=== PATIENT | male | born 1995 | race Caucasian/White ===

== ENCOUNTER 2024-02-11 13:43 | Inpatient (IN) | payer MEDICAID, OTHER, SELFPAY ==
[2024-02-11 13:48] VITALS: BP 125/60; PULSE 64; RESP 18; TEMP 36; O2SAT 98; BMI 23.1
--- NOTE | 2024-02-11 13:51 | ED.PSYCH ---
HPI - Psych General Chief Complaint: Psychiatric Symptoms Stated Complaint: SI Time Seen by Provider: 02/11/24 14:06 Source: patient Mode of arrival: ambulatory Limitations: no limitations History of Present Illness HPI Narrative: 28 yo patient with PMH of schizophrenia here with reports of SI due to life stressors and also notes prior inpatient treatments not happy with current care. No medical complaints. Is compliant with medications state people are helping her but she just cannot seem to get herself to do it. MD complaint: suicidal ideation and feels depressed Onset (ago): week(s) Duration: getting worse History of same: Yes Relieving factors: none Exacerbating factors: other Context: significant life stressor Associated psychiatric symptoms: depression and suicidal ideation Associated symptoms: denies other symptoms Treatments prior to arrival: none If self harm: admits thoughts of self harm Related Data Allergies Allergy/AdvReac Type Severity Reaction Status Date / Time No Known Allergies Allergy Verified 02/11/24 13:52 Review of Systems Review of Systems: Constitutional : No Fever, No Chills ENT/Mouth : No Ear Pain, No Nasal Congestion, No sore throat Eyes: No Eye Pain, No Swelling, No Redness Cardiovascular : No Chest Pain, No SOB Respiratory : No Cough, No Sputum, No Dyspnea Gastrointestinal : No Nausea, No Vomiting, No Diarrhea, No Hematochezia, No Melena Genitourinary : No Dysuria, No Urinary Frequency, No Hematuria Musculoskeletal : No Myalgias Skin : No Skin Lesions, No rash Neuro : No Weakness, No Numbness, No Paresthesias, No Dizziness, No Headache Psych : positive Anxiety, positive Depression, positive SI no HI All other systems reviewed and are negative [facility] Past Medical History Attestation statement: The following information was validated with the patient. Source: old records reviewed Medical History History of hormone therapy Schizophrenia Social History Social History Patient Tobacco Use Status: Current everyday Tobacco user Advance Directives: No Advance Directives Information Provided: No Do you have a plan to hurt others: No Plan Physical Exam Vital Signs: Vital Signs: Last Vital Signs Temp 96.8 F 02/11/24 13:48 Pulse 64 02/11/24 13:48 Resp 18 02/11/24 13:48 BP 125/60 02/11/24 13:48 Pulse Ox 98 02/11/24 13:48 O2 Del Method Room Air 02/11/24 13:48 BMI result Body Mass Index 23.1 Appearance: Alert. Oriented X3. No acute distress. Eyes: Pupils equal, round and reactive to light. ENT: Pharynx normal. Neck: Normal inspection. Neck supple. CVS: Normal heart rate and rhythm. Pulses normal. Respiratory: No respiratory distress. Breath sounds normal. Abdomen: Soft and nontender. Skin: Skin warm and dry. Normal skin color. Normal skin turgor. Extremities: No lower extremity edema. No calf ttp Neuro: Oriented X 3. No motor deficit. No sensory deficit. Cn2-12 intact Course Course Course Narrative: This is an RME performed by Lito Gorman CNP: Additional HPI, ROS, PE not included below will be deferred to primary provider. Patient is a 28-year-old transgender male to female patient with reported past medical history of schizophrenia, dissociative seizures, presenting for SI with a plan, though did not disclose plan, reports increased life stressors, brother had recently from Suicide. Previously has received care at [facility] and has been inpatient at [facility], wanting a second opinion to get stabillized Plan: moved to 22H in main ED Medical Decision Making Medical Decision Making [facility] Narrative: 28 yo patient with schizophrenia here with c/o SI and depression at this time denies medical complaints will obtain labs, CARE team consult Differential Diagnosis Differential Diagnoses: The differential diagnosis associated with the presentation includes depression, SI Admission/Observation Consideration of admission/observation: Escalation of care including admission/observation considered observation started at 220pm pending CARE team evaluation Consult Healthcare Provider Management of the patient was discussed with: Behavioral Health Provider Lab Data [facility] Lab Attestation statement: I reviewed the patient's lab results. 02/11/24 15:02 02/11/24 15:02 Labs: Lab Results 02/11/24 Range/Units 15:02 WBC 7.1 (4.8-10.8) X10*3/uL RBC 3.77 L (4.60-5.80) X10*6/uL Hgb 11.9 L (14.0-18.0) g/dl Hct 33.6 L (42.0-52.0) % MCV 89.1 (80.0-98.0) fL MCH 31.6 (27.0-33.0) pg MCHC 35.4 (31.0-36.0) g/dl RDW 11.6 (11.0-16.0) % Plt Count 170 (160-400) X10*3/uL MPV 9.5 (9.4-12.4) fL Immature Gran % (Auto) 0.3 (0.0-0.4) % Neut % (Auto) 68.5 (45-73) % Lymph % (Auto) 25.4 (20-40) % [place] % (Auto) 5.0 (2-11) % Eos % (Auto) 0.4 (0-4) % Baso % (Auto) 0.4 (0-2) % Lymph # (Auto) 1.8 (1.2-4.9) X10*3/uL [place] # (Auto) 0.4 (0.1-1.2) X10*3/uL Eos # (Auto) 0.0 (0.0-0.4) X10*3/uL Baso # (Auto) 0.0 (0.0-0.2) X10*3/uL Abs Immat Gran (auto) 0.02 (0.00-0.03) X10*3/uL Absolute Neuts (auto) 4.9 (2.0-8.3) x10*3/uL Absolute Nucleated RBC 0.000 (0.0-0.012) X10*3/uL Nucleated RBC % (auto) 0.0 (0.0-0.2) /100WBC Sodium 135 (135-145) mmol/L Potassium 4.0 (3.3-5.1) mmol/L Chloride 103 (96-108) mmol/L Carbon Dioxide 23 (22-29) mmol/L Anion Gap 13 (12-20) BUN 14 (9-16) mg/dL Creatinine 0.78 (0.5-1.4) mg/dL Estim Creat Clear Calc 153.7 Estimated GFR > 60 Random Glucose 112 (60-115) mg/dL Calcium 9.0 (8.4-10.2) mg/dL Total Bilirubin 0.3 (0.0-1.0) mg/dL AST 19 (5-37) U/L ALT 13 (0-40) U/L Alkaline Phosphatase 39 (39-117) U/L Total Protein 5.9 L (6.5-8.0) g/dL Albumin 3.7 (3.5-5.0) g/dL Salicylates < 5.0 L (15-30) mg/dL Acetaminophen < 3 (<30) mcg/mL Ethyl Alcohol < 10 mg/dL Influenza Type A (PCR) NEGATIVE (Negative) Influenza Type B (PCR) NEGATIVE (Negative) RSV RNA Qual (PCR) NEGATIVE (Negative) SARS-CoV-2 RNA (RT-PCR) NEGATIVE (Negative) Social Determinants Patient?s care significantly limited by Social Determinants of Health including: Inadequate housing and Problems related to primary support group Discharge Plan Discharge Clinical Impression: Chronic schizophrenia Patient Disposition: Still a Patient Interventions: [place]-Suicide Risk Severity Scale Last Done: 02/11/24 15:24 Print Language: Malagasy
[2024-02-11 15:06] LABS: MANUAL DIFF FLAG NO
[2024-02-11 15:13] LABS: Basophils Percent Auto 0.4 % (0-2); Eosinophils Percent Auto 0.4 % (0-4); Hematocrit 33.6 % (42.0-52.0); Hemoglobin 11.9 g/dl (14.0-18.0); Imm Gran Abs Auto 0.02 X10*3/uL (0.00-0.03); Imm Gran Pct Auto 0.3 % (0.0-0.4); Lymphocytes Absolute Auto 1.8 X10*3/uL (1.2-4.9); Lymphocytes Percent Auto 25.4 % (20-40); Mean Corpuscular HGB Conc 35.4 g/dl (31.0-36.0); Mean Corpuscular Hemoglobin 31.6 pg (27.0-33.0); Mean Corpuscular Volume 89.1 fL (80.0-98.0); Mean Platelet Volume 9.5 fL (9.4-12.4); Monocytes Absolute Auto 0.4 X10*3/uL (0.1-1.2); Neutrophils Absolute Auto 4.9 x10*3/uL (2.0-8.3); Neutrophils Percent Auto 68.5 % (45-73); Platelet Count 170 X10*3/uL (160-400); Red Blood Count 3.77 X10*6/uL (4.60-5.80); Red Cell Distribution Width 11.6 % (11.0-16.0); White Blood Count 7.1 X10*3/uL (4.8-10.8)
[2024-02-11 15:27] LABS: Acetaminophen LAB < 3 mcg/mL (<30); Salicylate < 5.0 mg/dL (15-30)
[2024-02-11 15:28] LABS: Alanine Aminotransferase 13 U/L (0-40); Albumin Level 3.7 g/dL (3.5-5.0); Alkaline Phosphatase 39 U/L (39-117); Anion Gap 13 (12-20); Aspartate Amino Transferase 19 U/L (5-37); Bilirubin Total 0.3 mg/dL (0.0-1.0); Blood Urea Nitrogen 14 mg/dL (9-16); Carbon Dioxide 23 mmol/L (22-29); Chloride 103 mmol/L (96-108); Creatinine Clr Calc Pharmacy 153.7; Estimated Glomerular Filt Rate > 60; Ethanol < 10 mg/dL; Glucose Random 112 mg/dL (60-115); Sodium 135 mmol/L (135-145); Total Protein 5.9 g/dL (6.5-8.0)
[2024-02-11 15:43] LABS: Influenza A PCR NEGATIVE (Negative); Influenza B PCR NEGATIVE (Negative); Resp Syncy Virus RNA Qual PCR NEGATIVE (Negative); SARS COV2 PCR INHOUSE NEGATIVE (Negative)
[2024-02-11 15:50] LABS: Appearance Urine Clear; Color Urine Yellow; Glucose Urine UA Negative (Negative); Leukocyte Esterase Urine Negative (Negative); Nitrite Urine Negative (Negative); Urine Blood Negative (Negative); Urine Ketones Negative (Negative); Urine Protein Negative (Neg-Trace)
[2024-02-11 16:02] LABS: Amphetamine Screen Urine Not Detected (Not Detect); Barbiturates, Urine Not Detected (Not Detect); Benzodiazepines Screen Urine Not Detected (Not Detect); Buprenorphine Scr Positive (Not Detect); Cannabinoid Screen Urine Not Detected (Not Detect); Cocaine Screen Urine Not Detected (Not Detect); Fentanyl, urine Not Detected (Not Detect); Methadone Screen, Urine Not Detected (Not Detect); Opiate Screen Urine Not Detected (Not Detect); Oxycodone Screen Urine Not Detected (Not Detect); Phencyclidine Screen Urine Not Detected (Not Detect)
[2024-02-11] MEDS: Nicotine Polacrilex 2 MG GUM BUCCAL ×2 (17:14→23:13)
--- NOTE | 2024-02-11 18:28 | PC.NURSE ---
Pt has multiple medications in POD belongings, and medications also in pharmacy
--- NOTE | 2024-02-11 18:49 | PHA.MEDREC ---
Pharmacy Consult ? Medication Reconciliation Pharmacy has completed the medication reconciliation. Spoke to pt and confirmed via rx bottles.
--- NOTE | 2024-02-11 18:52 | PC.NURSE ---
Pt laying in stretcher calm/cooperative, reading book. Awaiting care team report.
--- NOTE | 2024-02-11 19:41 | PC.NURSE ---
Assumed care of the pt at 1900. Pt is asleep in bed with sitter at the bedside at this time.
[2024-02-11] MEDS: cloNIDine HCL 0.2 MG TABLET PO (23:12)
[2024-02-11] MEDS: hydrOXYzine HCL 50 MG TABLET PO (23:13)
[2024-02-11] MEDS: Gabapentin 600 MG TABLET PO (23:13)
[2024-02-12 00:40] VITALS: BP 106/47; PULSE 57; RESP 16; TEMP 36.9; O2SAT 98
--- NOTE | 2024-02-12 07:22 | PC.NURSE ---
Assumed care of patient at 0645, patient appears to be sleeping at this time, respirations even and unlabored, no apparent distress noted. Patient will remain S12 inpatient bedsearch
[2024-02-12] MEDS: Gabapentin 600 MG TABLET PO ×2 (08:46→18:15)
[2024-02-12] MEDS: Buprenorphine/Naloxone 8/2 mg FILM 1 FILM BUCCAL (08:46)
[2024-02-12] MEDS: Disulfiram 250 MG TABLET PO (08:46)
[2024-02-12] MEDS: Multivitamin TABLET 1 TAB PO (08:46)
[2024-02-12] MEDS: Thiamine HCL 100 MG TABLET PO (08:46)
[2024-02-12] MEDS: Cariprazine HCl 1.5 MG CAPSULE PO (08:46)
[2024-02-12] MEDS: Folic Acid 1 MG TABLET PO (08:46)
[2024-02-12 09:15] VITALS: BP 109/63; PULSE 54; RESP 12; TEMP 36.7; O2SAT 98
[2024-02-12] MEDS: Nicotine Polacrilex 2 MG GUM BUCCAL ×2 (10:03→13:24)
[2024-02-12] MEDS: Nicotine 21 MG PATCH.TD24 TRANSDERMA (14:39)
[2024-02-12] MEDS: hydrOXYzine HCL 50 MG TABLET PO (18:15)
--- NOTE | 2024-02-12 19:00 | PC.NURSE ---
patient appears to remain at rest respirations are even and unlabored patient appears in no distress.
[2024-02-12 19:44] VITALS: BP 123/68; PULSE 88; RESP 16; TEMP 36.9; O2SAT 98
[2024-02-12] MEDS: traZODone HCL 100 MG TABLET PO (19:55)
[2024-02-12] MEDS: cloNIDine HCL 0.2 MG TABLET PO (19:55)
[2024-02-12] MEDS: Melatonin 3 MG TABLET PO (19:55)
--- NOTE | 2024-02-13 | ECG_ITS ---
Test Reason : RULE OUT QTC PROLONGATION-ATYPICAL USE Blood Pressure : / mmHG Vent. Rate : 053 BPM Atrial Rate : 053 BPM P-R Int : 148 ms QRS Dur : 100 ms QT Int : 442 ms P-R-T Axes : -07 -09 006 degrees QTc Int : 414 ms Sinus bradycardia Minimal voltage criteria for LVH, may be normal variant ( R in aVL ) Borderline ECG No previous ECGs available Referred By: Carlene Byers Electronically Signed By:Cuauhtemoc Leon
--- NOTE | 2024-02-13 02:48 | PC.NURSE ---
client awoke and came out to get a sandwich and milk
--- NOTE | 2024-02-13 07:13 | PC.NURSE ---
Assumed care of patient at 0645. Patient is observed sleeping in there bed at this time. No signs of distress, breathing is even and unlabored at this time. Will continue plan of care.
[2024-02-13] MEDS: Thiamine HCL 100 MG TABLET PO (09:04)
[2024-02-13] MEDS: Cariprazine HCl 1.5 MG CAPSULE PO (09:04)
[2024-02-13] MEDS: Multivitamin TABLET 1 TAB PO (09:04)
[2024-02-13] MEDS: Folic Acid 1 MG TABLET PO (09:04)
[2024-02-13] MEDS: Buprenorphine/Naloxone 8/2 mg FILM 1 FILM BUCCAL (09:04)
[2024-02-13] MEDS: Gabapentin 600 MG TABLET PO ×2 (09:04→17:29)
[2024-02-13] MEDS: Disulfiram 250 MG TABLET PO (10:18)
[2024-02-13] MEDS: Nicotine Polacrilex 2 MG GUM BUCCAL ×3 (10:39→15:56)
[2024-02-13 11:16] VITALS: BP 125/58; PULSE 59; RESP 15; TEMP 36.8; O2SAT 100
[2024-02-13 14:34] VITALS: BP 126/59; PULSE 68; RESP 19; TEMP 36.7; O2SAT 98
[2024-02-13 15:28] VITALS: BMI 23.8
[2024-02-13] MEDS: Nicotine 21 MG PATCH.TD24 TRANSDERMA (16:02)
--- NOTE | 2024-02-13 17:45 | PC.ADMIT ---
Vadim is 28 y/o transgender male to female who uses pronouns she/her. She was admitted to at 1:45 pm from [facility] POD on a CV for SI with plan to hang herself. Pt is not known to CARE team at [facility] as they usually seek treatment at [facility] in [place]. Pt carries diagnosis of Schizophrenia, MDD, and also reports having Dissociative disorder with seizure involvement that range from tremors to full on convulsions . She states she has had brain scans and all is normal. I'm not sure if the seizures are related to my trauma history or disassociation disorder. She reports the last seizure was in mid January. When she is in this state she reports having nystagmus prior to seizure activity but I don't lose consciousness . She also reports having several [facility] stays over past 2 years with most recent being at [facility]. She reports she has been clean from substances since September and is on Suboxone and Antibuse for past alcohol and substance use. Pt A/O x4, pleasant and cooperative with admission process. Skin and contraband search completed by 2 female staffing mgr, skin intact and no unsafe items found. Pt affect is depressed and blunted but pleasant. Presently denies SI/HI/AVH and is able to contract verbally for safety with TW. Pt is a good historian and wants to make sure that all of her history is conveyed and not just bits and pieces. She is presently homeless and was planning on going to live with/visit her grandmother but felt like she could not function or mobilize and decided to call an ambulance since she did not feel safe. Pt reports her brother completed suicide 2 months ago and this has contributed to her worsening depression. She reports she is not on any antidepressants and hopes to receive the treatment she needs while here. Currently on q15 min checks and feels safe on unit.
[2024-02-13] MEDS: Nicotine Polacrilex 2 MG GUM 4 MG BUCCAL ×2 (18:03→20:56)
[2024-02-13 20:00] VITALS: BP 136/67; PULSE 85; RESP 18; TEMP 36.6; O2SAT 100
[2024-02-13] MEDS: cloNIDine HCL 0.2 MG TABLET PO (20:49)
[2024-02-13] MEDS: Melatonin 3 MG TABLET PO (20:50)
[2024-02-13] MEDS: hydrOXYzine HCL 50 MG TABLET PO (20:51)
[2024-02-14] MEDS: Nicotine Polacrilex 2 MG GUM 4 MG BUCCAL ×7 (06:03→21:08)
[2024-02-14 08:00] VITALS: BP 122/60; PULSE 74; RESP 18; TEMP 36; O2SAT 100
[2024-02-14] MEDS: Folic Acid 1 MG TABLET PO (08:12)
[2024-02-14] MEDS: Nicotine 21 MG PATCH.TD24 TRANSDERMA (08:12)
[2024-02-14] MEDS: Gabapentin 600 MG TABLET PO ×2 (08:12→16:02)
[2024-02-14] MEDS: Disulfiram 250 MG TABLET PO (08:12)
[2024-02-14] MEDS: Cariprazine HCl 1.5 MG CAPSULE PO (08:12)
[2024-02-14] MEDS: Benztropine Mesylate 1 MG TABLET PO (08:12)
[2024-02-14] MEDS: Multivitamin TABLET 1 TAB PO (08:12)
[2024-02-14] MEDS: Thiamine HCL 100 MG TABLET PO (08:12)
[2024-02-14] MEDS: Buprenorphine/Naloxone 8/2 mg FILM 1 FILM BUCCAL (08:36)
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
[2024-02-14 11:26] LABS: Estimated Average Glucose 103 mg/dL; Hemoglobin A1c % 5.2 % (<6.0)
[2024-02-14 11:53] LABS: Cholesterol 173 mg/dL (<200); HDL Cholesterol 68 mg/dL (>40); LDL Cholesterol Calculated 84 mg/dL (<100); Magnesium 1.8 mg/dL (1.6-2.6); Triglycerides 106 mg/dL (<150)
[2024-02-14 12:13] LABS: Free T4 (Free Thyroxine) 0.91 ng/dL (0.71-1.85); Thyroid Stimulating Hormone 0.82 uIU/mL (0.32-4.0)
[2024-02-14 12:18] LABS: Folate 18.5 ng/mL (> or = 4.0); Vitamin B12 951 pg/mL (200-900)
[2024-02-14 20:00] VITALS: BP 136/65; PULSE 105; RESP 17; TEMP 36.3; O2SAT 100
[2024-02-14 20:05] VITALS: BP 136/65
[2024-02-14] MEDS: cloNIDine HCL 0.2 MG TABLET PO (20:05)
[2024-02-14] MEDS: Melatonin 3 MG TABLET PO (20:07)
[2024-02-14] MEDS: hydrOXYzine HCL 50 MG TABLET PO (20:39)
[2024-02-15 07:00] VITALS: BMI 23.8
[2024-02-15] MEDS: Nicotine Polacrilex 2 MG GUM 4 MG BUCCAL ×8 (07:12→22:09)
[2024-02-15] MEDS: Nicotine 21 MG PATCH.TD24 TRANSDERMA (07:14)
[2024-02-15 08:00] VITALS: BP 120/60; PULSE 52; RESP 18; TEMP 36.4; O2SAT 100
[2024-02-15] MEDS: Gabapentin 600 MG TABLET PO ×2 (08:15→18:10)
[2024-02-15] MEDS: Disulfiram 250 MG TABLET PO (08:15)
[2024-02-15] MEDS: Multivitamin TABLET 1 TAB PO (08:15)
[2024-02-15] MEDS: buPROPion HCl XL 150 MG TAB.ER.24H PO (08:15)
[2024-02-15] MEDS: Folic Acid 1 MG TABLET PO (08:15)
[2024-02-15] MEDS: Thiamine HCL 100 MG TABLET PO (08:16)
[2024-02-15] MEDS: Buprenorphine/Naloxone 8/2 mg FILM 1 FILM BUCCAL (08:16)
[2024-02-15] MEDS: Benztropine Mesylate 1 MG TABLET PO (08:16)
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
[2024-02-15] MEDS: Cariprazine HCl 1.5 MG CAPSULE PO (09:17)
[2024-02-15] MEDS: Milk of Magnesia 30 ML ORAL.SUSP PO (18:32)
[2024-02-15 20:00] VITALS: BP 139/70; PULSE 68; RESP 16; TEMP 36.6; O2SAT 100
[2024-02-15] MEDS: cloNIDine HCL 0.2 MG TABLET PO (20:05)
[2024-02-15] MEDS: Melatonin 3 MG TABLET PO (22:08)
[2024-02-15] MEDS: hydrOXYzine HCL 50 MG TABLET PO (22:08)
[2024-02-16] MEDS: Nicotine Polacrilex 2 MG GUM 4 MG BUCCAL ×6 (05:30→21:08)
[2024-02-16 08:00] VITALS: BP 131/62; PULSE 75; RESP 18; TEMP 36.7; O2SAT 99
[2024-02-16] MEDS: Nicotine 21 MG PATCH.TD24 TRANSDERMA (08:36)
[2024-02-16] MEDS: Folic Acid 1 MG TABLET PO (08:37)
[2024-02-16] MEDS: Thiamine HCL 100 MG TABLET PO (08:37)
[2024-02-16] MEDS: Gabapentin 600 MG TABLET PO ×2 (08:37→15:53)
[2024-02-16] MEDS: Disulfiram 250 MG TABLET PO (08:37)
[2024-02-16] MEDS: Multivitamin TABLET 1 TAB PO (08:37)
[2024-02-16] MEDS: Cariprazine HCl 1.5 MG CAPSULE PO (08:37)
[2024-02-16] MEDS: buPROPion HCl XL 150 MG TAB.ER.24H PO (08:37)
[2024-02-16] MEDS: Benztropine Mesylate 1 MG TABLET PO (08:37)
[2024-02-16] MEDS: Buprenorphine/Naloxone 8/2 mg FILM 1 FILM BUCCAL (08:37)
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
[2024-02-16 10:15] LABS: Ammonia 22 umol/L (13-55)
[2024-02-16 10:24] LABS: Alanine Aminotransferase 14 U/L (0-40); Alkaline Phosphatase 43 U/L (39-117); Aspartate Amino Transferase 16 U/L (5-37); Bilirubin Direct 0.1 mg/dL (0.0-0.5); Bilirubin Total 0.4 mg/dL (0.0-1.0); Total Protein 6.6 g/dL (6.5-8.0)
[2024-02-16 20:00] VITALS: BP 121/68; PULSE 83; TEMP 36.3
[2024-02-16] MEDS: hydrOXYzine HCL 50 MG TABLET PO (20:19)
[2024-02-16] MEDS: Melatonin 3 MG TABLET PO (20:20)
[2024-02-16] MEDS: cloNIDine HCL 0.2 MG TABLET PO (20:20)
[2024-02-17] MEDS: Nicotine Polacrilex 2 MG GUM 4 MG BUCCAL ×7 (05:46→22:25)
[2024-02-17 08:00] VITALS: BP 127/59; PULSE 71; RESP 17; TEMP 36.4; O2SAT 100
[2024-02-17] MEDS: Buprenorphine/Naloxone 8/2 mg FILM 1 FILM BUCCAL (08:27)
[2024-02-17] MEDS: Nicotine 21 MG PATCH.TD24 TRANSDERMA (08:27)
[2024-02-17] MEDS: Folic Acid 1 MG TABLET PO (08:28)
[2024-02-17] MEDS: Disulfiram 250 MG TABLET PO (08:28)
[2024-02-17] MEDS: buPROPion HCl XL 300 MG TAB.ER.24H PO (08:28)
[2024-02-17] MEDS: Multivitamin TABLET 1 TAB PO (08:28)
[2024-02-17] MEDS: Benztropine Mesylate 1 MG TABLET PO (08:28)
[2024-02-17] MEDS: Cariprazine HCl 1.5 MG CAPSULE PO (08:28)
[2024-02-17] MEDS: Nicotine Polacrilex 2 MG GUM BUCCAL ×2 (08:28→16:21)
[2024-02-17] MEDS: Gabapentin 600 MG TABLET PO ×2 (08:28→16:22)
[2024-02-17] MEDS: Thiamine HCL 100 MG TABLET PO (08:28)
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
[2024-02-17] MEDS: Milk of Magnesia 30 ML ORAL.SUSP PO (09:00)
[2024-02-17] MEDS: bisacodyL 5 MG TABLET.DR PO (13:14)
[2024-02-17] MEDS: cloNIDine HCL 0.2 MG TABLET PO (20:16)
[2024-02-17] MEDS: Melatonin 3 MG TABLET PO (20:16)
[2024-02-17] MEDS: hydrOXYzine HCL 50 MG TABLET PO ×2 (20:16→22:25)
[2024-02-18 08:49] VITALS: BP 103/57; PULSE 66; RESP 18; TEMP 36.9; O2SAT 98
[2024-02-18] MEDS: Thiamine HCL 100 MG TABLET PO (09:04)
[2024-02-18] MEDS: Cariprazine HCl 1.5 MG CAPSULE PO ×2 (09:04→12:30)
[2024-02-18] MEDS: bisacodyL 5 MG TABLET.DR PO (09:04)
[2024-02-18] MEDS: buPROPion HCl XL 300 MG TAB.ER.24H PO (09:04)
[2024-02-18] MEDS: Folic Acid 1 MG TABLET PO (09:04)
[2024-02-18] MEDS: Gabapentin 600 MG TABLET PO ×2 (09:04→16:24)
[2024-02-18] MEDS: Multivitamin TABLET 1 TAB PO (09:04)
[2024-02-18] MEDS: Benztropine Mesylate 1 MG TABLET PO (09:04)
[2024-02-18] MEDS: Disulfiram 250 MG TABLET PO (09:04)
[2024-02-18] MEDS: Nicotine 21 MG PATCH.TD24 TRANSDERMA (09:06)
[2024-02-18] MEDS: Buprenorphine/Naloxone 8/2 mg FILM 1 FILM BUCCAL (09:07)
[2024-02-18] MEDS: Nicotine Polacrilex 2 MG GUM 4 MG BUCCAL ×6 (09:08→20:26)
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
[2024-02-18] MEDS: Acetaminophen 325 MG TABLET 650 MG PO (12:48)
[2024-02-18 20:00] VITALS: BP 108/53; PULSE 90; RESP 16; TEMP 36.2; O2SAT 99
[2024-02-18] MEDS: hydrOXYzine HCL 50 MG TABLET PO (20:25)
[2024-02-18] MEDS: Melatonin 3 MG TABLET PO (20:25)
[2024-02-18] MEDS: cloNIDine HCL 0.2 MG TABLET PO (20:26)
[2024-02-18] MEDS: traZODone HCL 100 MG TABLET PO (20:54)
[2024-02-19 08:00] VITALS: BP 105/47; PULSE 69; RESP 17; TEMP 36.2; O2SAT 98
[2024-02-19] MEDS: Nicotine 21 MG PATCH.TD24 TRANSDERMA (08:18)
[2024-02-19] MEDS: Multivitamin TABLET 1 TAB PO (08:19)
[2024-02-19] MEDS: Buprenorphine/Naloxone 8/2 mg FILM 1 FILM BUCCAL (08:19)
[2024-02-19] MEDS: Disulfiram 250 MG TABLET PO (08:19)
[2024-02-19] MEDS: Cariprazine HCl 3 MG CAPSULE PO (08:19)
[2024-02-19] MEDS: Thiamine HCL 100 MG TABLET PO (08:19)
[2024-02-19] MEDS: buPROPion HCl XL 300 MG TAB.ER.24H PO (08:20)
[2024-02-19] MEDS: Benztropine Mesylate 1 MG TABLET PO (08:20)
[2024-02-19] MEDS: Gabapentin 600 MG TABLET PO ×2 (08:20→16:29)
[2024-02-19] MEDS: Folic Acid 1 MG TABLET PO (08:20)
[2024-02-19] MEDS: Nicotine Polacrilex 2 MG GUM 4 MG BUCCAL ×5 (08:22→20:41)
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
[2024-02-19 15:47] VITALS: BP 105/57; PULSE 76
[2024-02-19] MEDS: Propranolol HCL 10 MG TABLET PO (15:47)
[2024-02-19 20:00] VITALS: BP 108/54; PULSE 57; RESP 18; TEMP 36.2; O2SAT 100
[2024-02-19] MEDS: traZODone HCL 100 MG TABLET PO (21:33)
[2024-02-19] MEDS: hydrOXYzine HCL 50 MG TABLET PO (21:33)
[2024-02-19] MEDS: Melatonin 3 MG TABLET PO (21:35)
[2024-02-19 22:30] VITALS: BP 111/51
[2024-02-20 08:00] VITALS: BP 110/54; PULSE 68; RESP 18; TEMP 36.5; O2SAT 98
[2024-02-20] MEDS: Nicotine 21 MG PATCH.TD24 TRANSDERMA (09:16)
[2024-02-20] MEDS: Multivitamin TABLET 1 TAB PO (09:17)
[2024-02-20] MEDS: Folic Acid 1 MG TABLET PO (09:17)
[2024-02-20] MEDS: Thiamine HCL 100 MG TABLET PO (09:17)
[2024-02-20] MEDS: buPROPion HCl XL 150 MG TAB.ER.24H 450 MG PO (09:17)
[2024-02-20] MEDS: Disulfiram 250 MG TABLET PO (09:17)
[2024-02-20] MEDS: Cariprazine HCl 3 MG CAPSULE PO (09:17)
[2024-02-20] MEDS: Buprenorphine/Naloxone 8/2 mg FILM 1 FILM BUCCAL (09:17)
[2024-02-20] MEDS: Benztropine Mesylate 1 MG TABLET PO (09:17)
[2024-02-20] MEDS: Gabapentin 600 MG TABLET PO ×2 (09:17→17:04)
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
[2024-02-20] MEDS: bisacodyL 5 MG TABLET.DR PO (09:59)
[2024-02-20] MEDS: Nicotine Polacrilex 2 MG GUM 4 MG BUCCAL ×6 (09:59→23:35)
[2024-02-20] MEDS: Milk of Magnesia 30 ML ORAL.SUSP PO (12:50)
[2024-02-20] MEDS: polyethylene glycoL 3350 17 GM POWD.PACK PO (13:16)
[2024-02-20] MEDS: Sodium Phosphate,Mono-Dibasic 133 ML ENEMA PR (13:53)
[2024-02-20 20:00] VITALS: BP 113/55; PULSE 75; RESP 16; TEMP 36.2; O2SAT 100
[2024-02-20] MEDS: Acetaminophen 325 MG TABLET 650 MG PO (20:35)
[2024-02-20] MEDS: Nicotine Polacrilex 2 MG GUM BUCCAL (20:35)
[2024-02-20 20:39] VITALS: BP 126/60
[2024-02-20] MEDS: cloNIDine HCL 0.2 MG TABLET PO (20:39)
[2024-02-20] MEDS: Melatonin 3 MG TABLET PO (20:41)
[2024-02-20] MEDS: hydrOXYzine HCL 50 MG TABLET PO ×2 (22:00→23:33)
[2024-02-21 08:00] VITALS: RESP 18
[2024-02-21] MEDS: Disulfiram 250 MG TABLET PO (08:34)
[2024-02-21] MEDS: buPROPion HCl XL 150 MG TAB.ER.24H 450 MG PO (08:34)
[2024-02-21] MEDS: Buprenorphine/Naloxone 8/2 mg FILM 1 FILM BUCCAL (08:34)
[2024-02-21] MEDS: Cariprazine HCl 3 MG CAPSULE PO (08:34)
[2024-02-21] MEDS: Benztropine Mesylate 1 MG TABLET PO (08:34)
[2024-02-21] MEDS: Multivitamin TABLET 1 TAB PO (08:34)
[2024-02-21] MEDS: Thiamine HCL 100 MG TABLET PO (08:34)
[2024-02-21] MEDS: Nicotine 21 MG PATCH.TD24 TRANSDERMA (08:34)
[2024-02-21] MEDS: Folic Acid 1 MG TABLET PO (08:34)
[2024-02-21] MEDS: Gabapentin 600 MG TABLET PO ×2 (08:34→17:24)
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
[2024-02-21] MEDS: Nicotine Polacrilex 2 MG GUM 4 MG BUCCAL ×5 (09:53→20:52)
[2024-02-21] MEDS: Sodium Phosphate,Mono-Dibasic 133 ML ENEMA PR (15:21)
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
[2024-02-21] MEDS: polyethylene glycoL 3350 17 GM POWD.PACK PO (17:27)
[2024-02-21] MEDS: bisacodyL 5 MG TABLET.DR PO (17:27)
[2024-02-21] MEDS: Milk of Magnesia 30 ML ORAL.SUSP PO (17:27)
[2024-02-21 20:00] VITALS: BP 110/62; PULSE 62; RESP 15; TEMP 36.5; O2SAT 100
[2024-02-21 20:48] VITALS: BP 110/62
[2024-02-21] MEDS: hydrOXYzine HCL 50 MG TABLET PO (20:48)
[2024-02-21] MEDS: Acetaminophen 325 MG TABLET 650 MG PO (20:48)
[2024-02-21] MEDS: Melatonin 3 MG TABLET PO (20:48)
[2024-02-21] MEDS: cloNIDine HCL 0.2 MG TABLET PO (20:48)
[2024-02-21] MEDS: traZODone HCL 100 MG TABLET PO (20:52)
[2024-02-22 07:00] VITALS: BMI 23.7
[2024-02-22 08:00] VITALS: BP 105/56; PULSE 66; RESP 17; O2SAT 98
[2024-02-22] MEDS: Buprenorphine/Naloxone 8/2 mg FILM 1 FILM BUCCAL (08:10)
[2024-02-22] MEDS: buPROPion HCl XL 150 MG TAB.ER.24H 450 MG PO (08:10)
[2024-02-22] MEDS: Disulfiram 250 MG TABLET PO (08:11)
[2024-02-22] MEDS: Thiamine HCL 100 MG TABLET PO (08:11)
[2024-02-22] MEDS: Folic Acid 1 MG TABLET PO (08:11)
[2024-02-22] MEDS: Multivitamin TABLET 1 TAB PO (08:11)
[2024-02-22] MEDS: Benztropine Mesylate 1 MG TABLET PO (08:11)
[2024-02-22] MEDS: Gabapentin 600 MG TABLET PO (08:11)
[2024-02-22] MEDS: Cariprazine HCl 3 MG CAPSULE PO (08:11)
== END 2024-02-22 10:54 | disposition home or self-care (01) | DRG 750 ==
LOC: HO.ED 23:51 → HO.PM5 02-13 12:25
PROVIDERS: Nurse Practitioner Family; Admitting Provider Clinical Nurse Specialist Psychiatric/Mental Health, Adult; Emergency Provider Emergency Medicine; Visit Provider Psychiatry & Neurology Psychiatry
DX: F25.0 Schizoaffective disorder, bipolar type (principal); R45.851 Suicidal ideations; F11.20 Opioid dependence, uncomplicated; F64.0 Transsexualism; F44.9 Dissociative and conversion disorder, unspecified; F17.210 Nicotine dependence, cigarettes, uncomplicated; F43.10 Post-traumatic stress disorder, unspecified; Z20.822 Contact with and (suspected) exposure to COVID-19; Z71.6 Tobacco abuse counseling; Z79.899 Other long term (current) drug therapy
CPT/HCPCS: 0241U; 36415; 80053; 80061; 80076; 80143; 80179; 80307; 81003; 82140; 82607; 82746; 83036; 83735; 84439; 84443; 85025; 93005; 99285; S9485

== ENCOUNTER 2024-02-13 12:20 | Outpatient (BNV) | payer MEDICAID, SELFPAY | END 2024-02-13 12:49 | PROVIDERS: Admitting Provider Clinical Nurse Specialist Psychiatric/Mental Health, Adult; Emergency Provider Emergency Medicine; Visit Provider Internal Medicine Cardiovascular Disease | DX: R00.1 Bradycardia, unspecified (principal) | CPT/HCPCS: 93010 ==

== ENCOUNTER → 2024-02-13 12:20 | Outpatient (BNV) | payer OTHER, SELFPAY | PROVIDERS: Admitting Provider Clinical Nurse Specialist Psychiatric/Mental Health, Adult; Emergency Provider Emergency Medicine; Visit Provider Psychiatry & Neurology Psychiatry | DX: F25.0 Schizoaffective disorder, bipolar type (principal); F43.11 Post-traumatic stress disorder, acute; F44.9 Dissociative and conversion disorder, unspecified; Z92.29 Personal history of other drug therapy | CPT/HCPCS: 99231; 99232 ==

== ENCOUNTER 2024-03-18 15:54 | Emergency (ER) | payer OTHER, SELFPAY ==
[2024-03-18 16:00] VITALS: BP 123/90; PULSE 110; RESP 18; TEMP 36.6; O2SAT 98; BMI 23.4
--- NOTE | 2024-03-18 16:00 | ED_ITS ---
HPI - General Adult General Chief complaint: Psychiatric Symptoms Stated complaint: crisis Time Seen by Provider: 03/18/24 17:11 Source: patient Mode of arrival: ambulatory Limitations: no limitations History of Present Illness ED Provider: Hodan Ureña PA-C HPI narrative: Patient is a 28 year old assigned male at , now female, with a history of PTSD, schizoaffective disorder, and dissociation presenting to the emergency department today with suicidal ideation. Patient states that she is feeling more suicidal as of lately with a plan of walking on the highway until she is hit by a vehicle as well as drinking more alcohol. Patient denies any dizziness, lightheadedness, abdominal pain, nausea, vomiting, fever, chills, blurry vision, double vision, loss of vision, chest pain, difficulty breathing, shortness of breath, back pain, night sweats, pain with urination, increased urinary frequency, increased urinary urgency, blood in her urine or stool, syncope or a near syncopal episode, recent trauma or falls, bowel incontinence, bladder incontinence, or any other complaints at this time. Relieving factors: none Exacerbating factors: none Associated symptoms: denies other symptoms Treatments prior to arrival: none Related Data Home Medications ?Medication ?Instructions ?Recorded ?Confirmed estradiol valerate 40 mg/mL 7.2 mg IM Q5D 02/11/24 03/18/24 intramuscular oil Previous Rx's ?Medication ?Instructions ?Recorded benztropine 1 mg tablet 1 mg PO DAILY PRN EPS 30 days #30 02/22/24 tabs buprenorphine 8 mg-naloxone 2 mg 1 film buccal DAILY 30 days #30 ea 02/22/24 sublingual film (Suboxone) bupropion HCl 150 mg 24 hr tablet, 150 mg PO QAM 30 days #30 tabs 02/22/24 extended release (Wellbutrin XL) bupropion HCl 300 mg 24 hr tablet, 300 mg PO QAM 30 days #30 tabs 02/22/24 extended release (Wellbutrin XL) cariprazine 1.5 mg capsule 3 mg (2 x 1.5 mg) PO DAILY 30 days 02/22/24 (Vraylar) #60 caps disulfiram 250 mg tablet 250 mg PO DAILY 30 days #30 tabs 02/22/24 folic acid 1 mg tablet 1 mg PO DAILY 30 days #30 tabs 05/16/24 hydroxyzine HCl 50 mg tablet 50 - 100 mg (1 - 2 x 50 mg) PO Q8H 02/22/24 PRN Anxiety 30 days #90 tabs melatonin 3 mg tablet 3 mg PO BEDTIME PRN Insomnia 30 02/22/24 days #30 tabs multivitamin 1 tab PO DAILY 30 days #30 tabs 02/22/24 nicotine (polacrilex) 4 mg gum 4 mg buccal Q2H PRN nicotine 02/22/24 cravings 30 days #100 ea trazodone 100 mg tablet 100 mg PO BEDTIME PRN insomnia 30 02/22/24 days #30 tabs Allergies Allergy/AdvReac Type Severity Reaction Status Date / Time No Known Allergies Allergy Verified 03/18/24 16:02 Review of Systems 2 Constitutional: Constitutional: Reports no additional constitutional complaints, Denies chills, Denies fever(s) and Denies night sweats Eyes: Eyes: Reports no additional eye complaints, Denies blurry vision, Denies change in vision, Denies diplopia, Denies eye discharge, Denies loss of vision and Denies eye pain ENT: Denies dizziness Cardiovascular: Cardiovascular: Reports no additional cardiovascular complaints, Denies chest pain, Denies lightheadedness, Denies Loss of Consciousness and Denies dyspnea Respiratory: Respiratory: Reports no additional respiratory complaints and Denies dyspnea Gastrointestinal: Gastrointestinal: Reports no additional gastrointestinal complaints, Denies abdominal pain, Denies melena, Denies hematochezia, Denies change in bowel habits and Denies change in stool character Genitourinary: Genitourinary: Reports no additional male genitourinary complaints, Denies hematuria, Denies oliguria, Denies difficulty urinating, Denies dysuria, Denies urinary frequency, Denies urinary hesitancy, Denies urinary incontinence and Denies urinary urgency Musculoskeletal: Musculoskeletal: Reports no additional musculoskeletal complaints, Denies numbness and Denies tingling Neurologic: Denies dizziness, Denies loss of vision, Denies numbness and Denies tingling Psychiatric: Psychiatric: Denies homicidal ideation and Reports suicidal ideation Endocrine: Endocrine: Reports no additional endocrine complaints Hematologic/Lymphatic: Hematologic/Lymphatic: Reports no additional hematologic/lymphatic complaints Allergic/Immunologic: Allergic/Immunologic: Reports no additional allergic/immunologic complaints PMFSH Past Medical History Attestation statement: The following information was validated with the patient. Source: old records reviewed and nursing notes reviewed Medical History Psychogenic nonepileptic seizure Dissociation PTSD (post-traumatic stress disorder) Schizoaffective disorder History of hormone therapy Schizophrenia Social History Social History Household Members: None Housing: Homeless Do you presently have visiting nurse or other home services: No Patient Tobacco Use Status: Current everyday Tobacco user Tobacco use type: Cigarette Cigarette Packs Per Day: 2 Cigarettes Per Day: 40.0 Smoked in Last 30 Days: Yes e-Cigarette/Vaping Use: Never Used Second Hand Smoke Exposure: No Use of substances other than those prescribed or required for medical reasons: Yes Substance Use Type: Marijuana Substance Use Frequency: Daily Advance Directives: No Advance Directives Information Provided: No Do you have a plan to hurt others: No Plan service: No Sexual orientation: Lesbian/Cool/Homosexual Physical Exam ED Vital Signs: Vital Signs - 24 hr 03/18/24 16:00 03/18/24 17:29 Temperature 98 F Pulse Rate 110 H Respiratory Rate 18 16 Blood Pressure 123/90 H Pulse Oximetry 98 Oxygen Delivery Method Room Air BMI result Body Mass Index 23.4 Const General: cooperative, no acute distress, alert and awake Nutritional Appearance: well nourished Orientation/consciousness: patient oriented x3 Limitations: no limitations HENMT Head: Yes normal to inspection and Yes atraumatic Ears: hearing grossly normal bilaterally and external ears normal General nose exam: Normal external nose present, no nasal discharge noted and no epistaxis Face and sinus: Yes normal facial exam, No abrasion and No laceration Mouth: Normal oral and palatal mucosa present, no drooling and no muffled voice Eyes General: appearance normal, both eyes and all related structures Periorbital: periorbital findings normal Eyelids: Yes eyelids normal Conjunctivae: conjunctivae normal Pupils: Equal, round and reactive pupils present EOM: EOMs intact bilaterally Neck Neck: Yes normal visual inspection, Yes full ROM and Yes no lymphadenopathy Chest Chest palpation & inspection: normal inspection of the chest Resp Effort & Inspection: normal respiratory effort and able to speak in complete sentences GI Inspection: Yes normal to inspection Neuro General: patient oriented x3 and moves all extremities Cranial nerves: Yes Equal, round and reactive pupils present Cognition (Neuro): normal cognition Motor exam (neuro): 5/5 motor strength present throughout Sensory Exam: Normal double simultaneous stimulation for sensation Coordination: [id number] test normal Extrem General: Yes normal to inspection, Yes full ROM and Yes capillary refill normal Psych Appearance: grossly normal Mental Status: mental status grossly normal Affect: Sad affect present Attitude: Guarded attititude/behavior present Thought content: Suicidality present Course Course Course Narrative: RME performed by Hodan Ureña PA-C. Patient is a 28 year old assigned male at , now female, presenting to the emergency department with concern for psychosis. Patient states she feels as though she is in true psychosis at this time for the first time ever. Patient states that she has a traumatic anniversary coming up soon that is adding to this. Detailed physical exam and review of systems are deferred to the stubber. Labs ordered. Charge nurse made aware of patient. Medical Decision Making Medical Decision Making [facility] Narrative: Patient is a 28 year old assigned male at , now female, with a history of PTSD, schizoaffective disorder, and dissociation presenting to the emergency department today with suicidal ideation. Patient's physical exam was as noted in the physical exam portion of this note Patient's blood work was unremarkable. Patient's urine showed no acute process. I explained my physical exam findings as well as all test results to the patient. I answered all questions asked by the patient. Patient is awaiting CARE team evaluation. Patient's disposition will be determined after CARE team evaluation. Physician observation began at 1840. Differential Diagnosis Differential Diagnoses: The differential diagnosis associated with the presentation includes Suicidal ideation Admission/Observation Consideration of admission/observation: Escalation of care including admission/observation considered Patient's disposition will be determined after CARE evaluation. Lab Data [facility] Lab Attestation statement: I reviewed the patient's lab results. My interpretation of these results are in the MDM Rationale portion of this note. 03/18/24 16:58 03/18/24 16:58 Labs: Lab Results 03/18/24 03/18/24 03/18/24 Range/Units 16:58 16:59 17:23 WBC 6.8 (4.8-10.8) X10*3/uL RBC 4.12 L (4.60-5.80) X10*6/uL Hgb 12.7 L (14.0-18.0) g/dl Hct 36.3 L (42.0-52.0) % MCV 88.1 (80.0-98.0) fL MCH 30.8 (27.0-33.0) pg MCHC 35.0 (31.0-36.0) g/dl RDW 12.1 (11.0-16.0) % Plt Count 192 (160-400) X10*3/uL MPV 8.9 L (9.4-12.4) fL Immature Gran % (Auto) 0.3 (0.0-0.4) % Neut % (Auto) 75.5 H (45-73) % Lymph % (Auto) 19.4 L (20-40) % [place] % (Auto) 4.3 (2-11) % Eos % (Auto) 0.1 (0-4) % Baso % (Auto) 0.4 (0-2) % Lymph # (Auto) 1.3 (1.2-4.9) X10*3/uL [place] # (Auto) 0.3 (0.1-1.2) X10*3/uL Eos # (Auto) 0.0 (0.0-0.4) X10*3/uL Baso # (Auto) 0.0 (0.0-0.2) X10*3/uL Abs Immat Gran (auto) 0.02 (0.00-0.03) X10*3/uL Absolute Neuts (auto) 5.1 (2.0-8.3) x10*3/uL Absolute Nucleated RBC 0.000 (0.0-0.012) X10*3/uL Nucleated RBC % (auto) 0.0 (0.0-0.2) /100WBC Sodium 139 (135-145) mmol/L Potassium 4.6 (3.3-5.1) mmol/L Chloride 103 (96-108) mmol/L Carbon Dioxide 23 (22-29) mmol/L Anion Gap 18 (12-20) BUN 9 (9-16) mg/dL Creatinine 0.77 (0.5-1.4) mg/dL Estim Creat Clear Calc 156.7 Estimated GFR > 60 Random Glucose 103 (60-115) mg/dL Calcium 9.0 (8.4-10.2) mg/dL Total Bilirubin 0.3 (0.0-1.0) mg/dL AST 18 (5-37) U/L ALT 16 (0-40) U/L Alkaline Phosphatase 49 (39-117) U/L Total Protein 6.8 (6.5-8.0) g/dL Albumin 4.3 (3.5-5.0) g/dL Urine Color Yellow Urine Appearance Clear Urine pH 7.5 (5.0-9.0) Ur Specific [place] 1.010 (1.005-1.025) Urine Protein Negative (Neg-Trace) mg/dL Urine Glucose (UA) Negative (Negative) mg/dL Urine Ketones Negative (Negative) mg/dL Urine Blood Negative (Negative) Urine Nitrite Negative (Negative) Ur Leukocyte Esterase Trace H (Negative) Urine RBC 0-2 (0-2) /HPF Urine WBC 0-5 (0-5) /HPF Ur Squamous Epith Cells 3-5 (0-2) /HPF Urine Bacteria None Seen (None Seen) Hyaline Casts 0-2 (0-2) /LPF Salicylates < 5.0 L (15-30) mg/dL Urine Opiates Screen Not Detected (Not Detect) Ur Buprenorphine Scrn Not Detected (Not Detect) ng/mL Ur Oxycodone Screen Not Detected (Not Detect) ng/mL Urine Methadone Screen Not Detected (Not Detect) ng/mL Urine Fentanyl Screen Not Detected (Not Detect) Acetaminophen < 3 (<30) mcg/mL Ur Barbiturates Screen Not Detected (Not Detect) Ur Phencyclidine Scrn Not Detected (Not Detect) Ur Amphetamines Screen Not Detected (Not Detect) U Benzodiazepines Scrn Not Detected (Not Detect) Urine Cocaine Screen Not Detected (Not Detect) U Marijuana (THC) Screen POSITIVE H (Not Detect) Ethyl Alcohol 155 mg/dL Critical Care Time Critical Care Time Critical Care Time: Yes Total Critical Care Time: 34 Attestation: I spent 34 minutes of Critical Care Time with this patient. This does not include time spent on separately reported billable procedures. Discharge Plan Discharge Clinical Impression: Suicidal ideation Patient Disposition: Still a Patient Prescriptions: No Action estradiol valerate 40 mg/mL Oil 7.2 mg IM Q5D Rx Instructions: NEXT DOSE DUE: 02/12/24 nicotine (polacrilex) 4 mg gum 4 mg buccal Q2H PRN (Reason: nicotine cravings) 30 Days Qty: 100 1RF multivitamin Tablet 1 tab PO DAILY 30 Days Qty: 30 0RF hydroxyzine HCl 50 mg Tablet 50 - 100 mg PO Q8H PRN (Reason: Anxiety) 30 Days Qty: 90 1RF melatonin 3 mg Tablet 3 mg PO BEDTIME PRN (Reason: Insomnia) 30 Days Qty: 30 1RF disulfiram 250 mg Tablet 250 mg PO DAILY 30 Days Qty: 30 1RF trazodone 100 mg tablet 100 mg PO BEDTIME PRN (Reason: insomnia) 30 Days Qty: 30 1RF benztropine 1 mg Tablet 1 mg PO DAILY PRN (Reason: EPS) 30 Days Qty: 30 1RF folic acid 1 mg Tablet 1 mg PO DAILY 30 Days Qty: 30 0RF Vraylar 1.5 mg Capsule 3 mg PO DAILY 30 Days Qty: 60 1RF buprenorphine-naloxone [Suboxone] 8-2 mg Film 1 film BUCCAL DAILY 30 Days Qty: 30 0RF bupropion HCl [Wellbutrin XL] 300 mg tablet extended release 24 hr 300 mg PO QAM 30 Days Qty: 30 1RF Rx Instructions: take with 150mg tab bupropion HCl [Wellbutrin XL] 150 mg tablet extended release 24 hr 150 mg PO QAM 30 Days Qty: 30 1RF Rx Instructions: take with 300mg tab Interventions: [place]-Suicide Risk Severity Scale Last Done: 03/18/24 17:29 Print Language: Turkish
[2024-03-18 17:04] LABS: MANUAL DIFF FLAG NO
[2024-03-18 17:05] LABS: Basophils Percent Auto 0.4 % (0-2); Eosinophils Percent Auto 0.1 % (0-4); Hematocrit 36.3 % (42.0-52.0); Hemoglobin 12.7 g/dl (14.0-18.0); Imm Gran Abs Auto 0.02 X10*3/uL (0.00-0.03); Imm Gran Pct Auto 0.3 % (0.0-0.4); Lymphocytes Absolute Auto 1.3 X10*3/uL (1.2-4.9); Lymphocytes Percent Auto 19.4 % (20-40); Mean Corpuscular Hemoglobin 30.8 pg (27.0-33.0); Mean Corpuscular Volume 88.1 fL (80.0-98.0); Mean Platelet Volume 8.9 fL (9.4-12.4); Monocytes Absolute Auto 0.3 X10*3/uL (0.1-1.2); Monocytes Percent Auto 4.3 % (2-11); Neutrophils Absolute Auto 5.1 x10*3/uL (2.0-8.3); Neutrophils Percent Auto 75.5 % (45-73); Platelet Count 192 X10*3/uL (160-400); Red Blood Count 4.12 X10*6/uL (4.60-5.80); Red Cell Distribution Width 12.1 % (11.0-16.0); White Blood Count 6.8 X10*3/uL (4.8-10.8)
[2024-03-18 17:21] LABS: Acetaminophen LAB < 3 mcg/mL (<30); Salicylate < 5.0 mg/dL (15-30)
[2024-03-18 17:29] VITALS: RESP 16
[2024-03-18 17:32] LABS: Alanine Aminotransferase 16 U/L (0-40); Albumin Level 4.3 g/dL (3.5-5.0); Alkaline Phosphatase 49 U/L (39-117); Anion Gap 18 (12-20); Aspartate Amino Transferase 18 U/L (5-37); Bilirubin Total 0.3 mg/dL (0.0-1.0); Blood Urea Nitrogen 9 mg/dL (9-16); Carbon Dioxide 23 mmol/L (22-29); Chloride 103 mmol/L (96-108); Creatinine Clr Calc Pharmacy 156.7; Estimated Glomerular Filt Rate > 60; Ethanol 155 mg/dL; Glucose Random 103 mg/dL (60-115); Potassium 4.6 mmol/L (3.3-5.1); Sodium 139 mmol/L (135-145); Total Protein 6.8 g/dL (6.5-8.0)
[2024-03-18 17:33] LABS: Appearance Urine Clear; Color Urine Yellow; Glucose Urine UA Negative (Negative); Leukocyte Esterase Urine Trace (Negative); Nitrite Urine Negative (Negative); PH 7.5 (5.0-9.0); UMIC TRIGGER UA YES; Urine Blood Negative (Negative); Urine Ketones Negative (Negative); Urine Protein Negative (Neg-Trace)
[2024-03-18 17:48] LABS: Amphetamine Screen Urine Not Detected (Not Detect); Barbiturates, Urine Not Detected (Not Detect); Benzodiazepines Screen Urine Not Detected (Not Detect); Buprenorphine Scr Not Detected (Not Detect); Cannabinoid Screen Urine POSITIVE (Not Detect); Cocaine Screen Urine Not Detected (Not Detect); Fentanyl, urine Not Detected (Not Detect); Methadone Screen, Urine Not Detected (Not Detect); Opiate Screen Urine Not Detected (Not Detect); Oxycodone Screen Urine Not Detected (Not Detect); Phencyclidine Screen Urine Not Detected (Not Detect)
--- NOTE | 2024-03-18 17:57 | PC.NURSE ---
patient comes to the ED today seeking help due to increasing suicidal thoughts with a plan to walk on the highway into traffic. Patient is known to this ER for previous visits with similar thought processes. Patient is calm and cooperative, alert and oriented x4, skin pwd, no apparent distress noted. Help seeking at this time. Patient reports she has not taken her medications in about two weeks due to her being decompensated. continue plan of care for med clearance and CARE team marina
[2024-03-18 18:11] LABS: Bacteria Urine None Seen (None Seen); Hyaline Casts Urine 0-2 /LPF (0-2); RBC Urine 0-2 /HPF (0-2); WBC Urine 0-5 /HPF (0-5)
--- NOTE | 2024-03-19 | ECG_ITS ---
Test Reason : RULE OUT PROLONGED QT Blood Pressure : / mmHG Vent. Rate : 065 BPM Atrial Rate : 065 BPM P-R Int : 144 ms QRS Dur : 104 ms QT Int : 446 ms P-R-T Axes : 060 072 057 degrees QTc Int : 463 ms Sinus rhythm with sinus arrhythmia with occasional Premature ventricular complexes Otherwise normal ECG When compared with ECG of 13-FEB-2024 12:49, Premature ventricular complexes are now Present Questionable change in QRS axis Referred By: Hodan Ureña Electronically Signed By:CAESAR VEGAS
[2024-03-19 05:46] VITALS: BP 128/79; PULSE 78; RESP 17; TEMP 36.4; O2SAT 100
--- NOTE | 2024-03-19 07:14 | PC.NURSE ---
Assumed care of patient at 0645, patient appears to be sleeping, respirations even and unlabored, no apparent distress noted at this time. Continue plan of care for inpatient bedsearch
[2024-03-19 08:25] VITALS: BP 129/76; PULSE 59; RESP 12; TEMP 36.6; O2SAT 99
[2024-03-19] MEDS: Cariprazine HCl 3 MG CAPSULE PO (08:53)
[2024-03-19] MEDS: buPROPion HCl XL 300 MG TAB.ER.24H PO (08:53)
[2024-03-19] MEDS: Buprenorphine/Naloxone 8/2 mg FILM 1 FILM BUCCAL (08:53)
[2024-03-19] MEDS: Multivitamin TABLET 1 TAB PO (08:53)
[2024-03-19] MEDS: Folic Acid 1 MG TABLET PO (08:53)
[2024-03-19] MEDS: buPROPion HCl XL 150 MG TAB.ER.24H PO (08:53)
[2024-03-19] MEDS: Disulfiram 250 MG TABLET PO (08:57)
[2024-03-19] MEDS: Nicotine Polacrilex 2 MG GUM 4 MG BUCCAL ×2 (12:33→16:58)
--- NOTE | 2024-03-19 12:40 | MHC.EDTECH ---
belongings in locker 4, backpack in laundry closet
--- NOTE | 2024-03-19 13:46 | MHC.CARE ---
Addendum entered by Zoraida Aguiar 03/19/24 13:53: Accepting provider is Dr. Catarina Emerson* Original Note: Pt [facility] accepted to [facility] for tomorow 03/20/24 ETA 10am by Wilmar. The accepting provider is Dr. Catarina Corbin. The address is [address] [place] [address]. The nurse to nurse number is [phone]. The pod RN and the CARE team have been notified of placement.
[2024-03-19] MEDS: hydrOXYzine HCL 50 MG TABLET 100 MG PO (16:58)
--- NOTE | 2024-03-19 19:07 | PC.NURSE ---
patient appears to remain at rest at present respirations are even and unlabored patient appears in no distress
[2024-03-20 06:29] VITALS: BP 110/60; PULSE 75; TEMP 36.1; O2SAT 99
--- NOTE | 2024-03-20 07:51 | PC.NURSE ---
report given to cameron [facility], ambulance booked this AM
[2024-03-20] MEDS: Disulfiram 250 MG TABLET PO (08:37)
[2024-03-20] MEDS: buPROPion HCl XL 150 MG TAB.ER.24H PO (08:37)
[2024-03-20] MEDS: Folic Acid 1 MG TABLET PO (08:37)
[2024-03-20] MEDS: Multivitamin TABLET 1 TAB PO (08:37)
[2024-03-20] MEDS: Cariprazine HCl 3 MG CAPSULE PO (08:37)
[2024-03-20] MEDS: Buprenorphine/Naloxone 8/2 mg FILM 1 FILM BUCCAL (08:37)
[2024-03-20] MEDS: buPROPion HCl XL 300 MG TAB.ER.24H PO (08:37)
[2024-03-20] MEDS: Benztropine Mesylate 1 MG TABLET PO (08:43)
[2024-03-20] MEDS: Nicotine Polacrilex 2 MG GUM 4 MG BUCCAL (08:45)
[2024-03-20 09:51] VITALS: BP 110/60; PULSE 75; RESP 12; TEMP 36.1; O2SAT 99
== END 2024-03-20 09:52 ==
PROVIDERS: Physician Assistant Medical; Emergency Provider Emergency Medicine Emergency Medical Services; PCP Internal Medicine
DX: F25.9 Schizoaffective disorder, unspecified (principal); R45.851 Suicidal ideations; F44.9 Dissociative and conversion disorder, unspecified; F43.10 Post-traumatic stress disorder, unspecified; F17.210 Nicotine dependence, cigarettes, uncomplicated; Z92.29 Personal history of other drug therapy; Z79.899 Other long term (current) drug therapy
CPT/HCPCS: 36415; 80053; 80143; 80179; 80307; 81001; 85025; 93005; 99285; S9485

== ENCOUNTER → 2024-03-19 09:27 | Outpatient (BNV) | payer MEDICAID, SELFPAY | PROVIDERS: Emergency Provider Internal Medicine; PCP Internal Medicine; Visit Provider Internal Medicine | DX: I49.9 Cardiac arrhythmia, unspecified (principal) | CPT/HCPCS: 93010 ==

== ENCOUNTER 2025-05-16 22:17 | Emergency (ER) | payer MEDICAID, SELFPAY ==
[2025-05-16 22:33] VITALS: BP 137/75; PULSE 118; O2SAT 99
[2025-05-16 22:37] VITALS: BP 148/94; PULSE 112; RESP 18; TEMP 36.4; O2SAT 98; BMI 20.5
--- NOTE | 2025-05-16 22:38 | ED_ITS ---
HPI - General Adult General Chief complaint: ETOH/Substance Use Stated complaint: ETOH Time Seen by Provider: 05/16/25 22:34 Source: patient and EMS Mode of arrival: EMS Limitations: no limitations History of Present Illness ED Provider: Dr. Argenis Doe HPI narrative: Patient comes to the emergency room via ambulance. According to EMS, the patient was found sleeping on the floor, intoxicated, they told her that she needed to come to the emergency room. On arrival, patient is awake, alert and oriented x3, coherent. Patient is pretty angry that they brought her to emergency room against her will. Patient states that she accepts that she was drinking a large amount of alcohol, patient lowered herself to the ground and took a nap. Patient states that PD told her that she wanted to sleep, she could do so at [facility]. Patient denies SI or HI, denies using other drugs. Patient does not want any help, and does not want to take a nap here at [facility] Related Data Home Medications ?Medication ?Instructions ?Recorded ?Confirmed estradiol valerate 40 mg/mL 7.2 mg IM Q5D 02/11/2408/01 intramuscular oil Previous Rx's ?Medication ?Instructions ?Recorded benztropine 1 mg tablet 1 mg PO DAILY PRN EPS 30 day s #30 02/22/24 tabs buprenorphine 8 mg-naloxone 2 mg 1 film buccal DAILY 3 0 days #30 ea 02/22/24 sublingual film (Suboxone) bupropion HCl 150 mg 24 hr tablet, 150 mg PO QAM 30 da ys #30 tabs 02/22/24 extended release (Wellbutrin XL) bupropion HCl 300 mg 24 hr tablet, 300 mg PO QAM 30 da ys #30 tabs 02/22/24 extended release (Wellbutrin XL) cariprazine 1.5 mg capsule 3 mg (2 x 1.5 mg) PO DAILY 30 days 02/22/24 (Vraylar) #60 caps disulfiram 250 mg tablet 250 mg PO DAILY 30 days #30 tabs 02/22/24 folic acid 1 mg tablet 1 mg PO DAILY 30 days #30 ta bs 02/22/24 hydroxyzine HCl 50 mg tablet 50 - 100 mg (1 - 2 x 50 m g) PO Q8H 02/22/24 PRN Anxiety 30 days #90 tabs melatonin 3 mg tablet 3 mg PO BEDTIME PRN Insomnia 30 02/22/24 days #30 tabs multivitamin 1 tab PO DAILY 30 days #30 t abs 02/22/24 nicotine (polacrilex) 4 mg gum 4 mg buccal Q2H PRN coty otine 02/22/24 cravings 30 days #100 ea trazodone 100 mg tablet 100 mg PO BEDTIME PRN insomn ia 30 02/22/24 days #30 tabs Allergies Allergy/AdvReac Type Severity Reaction Status Date / Time No Known Allergies Allergy Verified 05/16/25 22:41 Review of Systems Review of Systems: Constitutional : No Weight loss, No Fever, No Chills, No Night Sweats, No Fatigue, No Malaise ENT/Mouth : No Hearing loss, No Ear Pain, No Nasal Congestion, No Sinus Pain, No Hoarseness, No sore throat, No Rhinorrhea, No Swallowing Difficulty Eyes: No Eye Pain, No Swelling, No Redness, No Foreign Body, No Discharge, No Vision Changes Cardiovascular : No Chest Pain, No SOB, No Dyspnea on Exertion, No Orthopnea, No Edema, No Palpitations Respiratory : No Cough, No Sputum, No Wheezing, No Smoke Exposure, No Dyspnea Gastrointestinal : No Nausea, No Vomiting, No Diarrhea, No Constipation, No abdominal Pain, No Hematochezia, No Melena Genitourinary : no irregular bleeding, No Dysuria, No Urinary Frequency, No Hematuria, No Urinary Incontinence, No Urgency, No Flank Pain, No Urinary Flow Changes, No Hesitancy Musculoskeletal : No joint pain, No Myalgias, No Joint Swelling Skin : No Skin Lesions, No rash Neuro : No Weakness, No Numbness, No Paresthesias, No Loss of Consciousness, No Dizziness, No Headache Psych : No Anxiety/Panic, No Depression, No SI/HI/AH/VH, admits to alcohol abuse Heme/Lymph: No Bruising, No Bleeding,No Lymphadenopathy Endocrine : No Polyuria, No Polydipsia, No Temperature Intolerance COUNTS INCLUDE 234 BEDS AT THE [facility] Past Medical History Medical History Psychogenic nonepileptic seizure Dissociation PTSD (post-traumatic stress disorder) Schizoaffective disorder History of hormone therapy Schizophrenia Social History Social History Household Members: None Housing: Homeless Do you presently have visiting nurse or other home services: No Patient Tobacco Use Status: Current everyday Tobacco user Tobacco use type: Cigarette Cigarette Packs Per Day: 2 Cigarettes Per Day: 40.0 e-Cigarette/Vaping Use: Never Used Second Hand Smoke Exposure: No Substance Use Type: Marijuana Advance Directives: No Advance Directives Information Provided: No service: No Sexual orientation: Lesbian/Cool/Homosexual Physical Exam ED Exam Exam: Appearance: Alert. Oriented X3. No acute distress. Clinically sober, having a coherent conversation. Eyes: Pupils equal, round and reactive to light. ENT: Pharynx normal. Neck: Normal inspection. Neck supple. No lymph nodes noted. No crepitus CVS: Normal heart rate and rhythm. Pulses normal. Normal S1 and S2 Respiratory: No respiratory distress. Breath sounds normal. No Wheezing. No rales Abdomen: Soft and nontender. No rigidity. No distention. Skin: Skin warm and dry. Normal skin color. Normal skin turgor. Extremities: No lower extremity edema. No Lacerations. No Rash Neuro: Oriented X 3. No motor deficit. No sensory deficit. Moving all extremities. No slurred speech. CN 2 through 12 grossly intact Psych: calm, cooperative, normal affect Vital Signs: Vital Signs - 24 hr 05/16/25 22:37 05/16/25 22:42 Temperature 97.6 F 97.6 F Pulse Rate 112 H 112 H Respiratory Rate 18 18 Blood Pressure 148/94 H 148/94 H Pulse Oximetry 98 98 Oxygen Delivery Method Room Air Room Air BMI result Body Mass Index 20.5 Medical Decision Making Medical Decision Making MDM Narrative: Patient agreed to let us do vitals signs. However, patient states that she does not want any further help Patient's vitals still Patient is alert and oriented x3, coherent, normal steady gait. Patient is not SI or HI Section 12 is not indicated Differential Diagnosis Differential Diagnoses: The differential diagnosis associated with the presentation includes (Alcohol intoxication, polysubstance abuse) Discharge Plan Discharge Clinical Impression: Alcohol intoxication Patient Disposition: Home, Self-Care Instructions: Abuse of Alcohol (ED) Additional Instructions: Please follow-up with your primary care physician tomorrow. If you have any worsening or new symptoms, please return to the emergency room or call 911 Prescriptions: No Action estradiol valerate 40 mg/mL Oil 7.2 mg IM Q5D Rx Instructions: NEXT DOSE DUE: 02/12/24 nicotine (polacrilex) 4 mg gum 4 mg buccal Q2H PRN (Reason: nicotine cravings) 30 Days Qty: 100 1RF multivitamin Tablet 1 tab PO DAILY 30 Days Qty: 30 0RF hydroxyzine HCl 50 mg Tablet 50 - 100 mg PO Q8H PRN (Reason: Anxiety) 30 Days Qty: 90 1RF melatonin 3 mg Tablet 3 mg PO BEDTIME PRN (Reason: Insomnia) 30 Days Qty: 30 1RF disulfiram 250 mg Tablet 250 mg PO DAILY 30 Days Qty: 30 1RF trazodone 100 mg tablet 100 mg PO BEDTIME PRN (Reason: insomnia) 30 Days Qty: 30 1RF benztropine 1 mg Tablet 1 mg PO DAILY PRN (Reason: EPS) 30 Days Qty: 30 1RF folic acid 1 mg Tablet 1 mg PO DAILY 30 Days Qty: 30 0RF Vraylar 1.5 mg Capsule 3 mg PO DAILY 30 Days Qty: 60 1RF buprenorphine-naloxone [Suboxone] 8-2 mg Film 1 film BUCCAL DAILY 30 Days Qty: 30 0RF bupropion HCl [Wellbutrin XL] 300 mg tablet extended release 24 hr 300 mg PO QAM 30 Days Qty: 30 1RF Rx Instructions: take with 150mg tab bupropion HCl [Wellbutrin XL] 150 mg tablet extended release 24 hr 150 mg PO QAM 30 Days Qty: 30 1RF Rx Instructions: take with 300mg tab Interventions: ED Discharge Assessment Last Done: 05/16/25 22:42 Discharge Date/Time: 05/16/25 22:45 Print Language: Nicaraguan
[2025-05-16 22:42] VITALS: BP 148/94; PULSE 112; RESP 18; TEMP 36.4; O2SAT 98
--- NOTE | 2025-05-17 02:07 | PC.NURSE ---
Late Entry: Upon arrival to the ED the patient was awake, alert, oriented, and conversing freely and without distress noted. The pt could be heard talking with EMS while awaiting bed placement that he wanted to go home, didn't need to be and didn't ask to be hear. While marketing research coordinator awaiting bed space, private branch exchange installer was attempted at which point the pt refused, began to argue with staff and became loud although she remained respectful. Dr Doe came over to speak with the patient while still infront of ED 4, the pt denied SI/HI, was ambulating with even and steady gait and was without distress noted. MD Doe spoke with and evaluated the patient and deemed her appropriate and okay for dc. She allowed for vitals to be taken and registration prior to departure.
== END 2025-05-16 22:42 | disposition home or self-care (01) ==
LOC: HO.ED 22:44
PROVIDERS: Emergency Provider Emergency Medicine
DX: F10.129 Alcohol abuse with intoxication, unspecified (principal)
CPT/HCPCS: 99282

== ENCOUNTER 2025-08-14 18:22 | Inpatient (IN) | payer OTHER, SELFPAY ==
--- OUTSIDE RECORDS SUMMARY | 2010-11-19 18:00 | XMS_ITS | Continuity of Care Document ---
Author Organization [facility] Address [address] [facility] [address] [place] [address] Care Team Providers Care Food Service Cashier Name Role Phone Unavailable Unavailable Unavailable Advance Directives Directive Yes / No Effective Date File Name No Information Encounters Encounter Description Practice Location Reason(s) For Visit Diagnoses Date Provider Providers Copied on Encounter [facility], [facility] [address] [facility] [address], [place], [place], [id number], [facility] No Information No Information Referring Provider: [address] [place] [address], [id number]. tel:[phone] Family History Family Member Type Diagnosis Age At Onset No Information Payers Payer name Insurance type Covered alliance party ID Thelmaa robel(s) [facility] POS [id number] CI [id number] Social History Type Description Quantity Date Captured Comments Sex Male Smoking Status No Information Chief Complaint And Reason For Visit No Information History Of Present Illness Encounter Date Complaint History Of Prese nt Illness No Information Instructions Date Instruction Additional Infor mation No Information Assessments Type Assessment Date No Information
--- OUTSIDE RECORDS SUMMARY | 2024-06-04 06:00 | XMS_ITS ---
Author Organization [facility] Address [address] [place] [address] Care Team Providers Care Clerical Proofreader Name Role Phone Dre Clark Unavailable [phone] Social History Sex Assigned At : Social History Observation Description Sex Assigned At Male Encounters Encounter Location Date Provider Diagnosis [facility] [address] [place], [place] [phone] 06/04/2024 Dre Clark Plan Of Treatment No Information Progress Notes * Lucas NANCEDOB:[birth year] (30 yo M)Acc No.[id number]:06/04/2024 Gender affirming hormones in itial visit Patient: Lucas Jeffery Provider: Pati Clark CNM, FNP :1995 A ge:29 Y S ex:Male(T) Date:06/04/2024 Address:[address] [place] [address], [id number] * Electronic signature of Dre Clark CNM on 08/14/2025 at 06:54 PM EST Sign off status: Pending * Provider: Pati Clark CNM, FNP Date: 0 06/04/2024 Generated for Ramesh tinajero/Rosi/eTluissmitting on: 10/14/2024 06:54 PM EST
--- OUTSIDE RECORDS SUMMARY | 2024-06-25 06:15 | XMS_ITS ---
Author Organization [facility] Address [address] [place] [place] [address] Care Team Providers Care Business Segment Manager Name Role Phone Dre Clark Unavailable [phone] REASON FOR VISIT GAH Start Social History Sex Assigned At : Social History Observation Description Sex Assigned At Male Encounters Encounter Location Date Provider Diagnosis [facility] [address] [place], [place] [phone] 06/25/2024 Dre Clark Plan Of Treatment No Information Progress Notes * Lucas NANCEDOB:[birth year] (30 yo M)Acc No.[id number]:06/25/2024 Gender affirming hormones in itial visit Patient: Lucas Jeffery Provider: Pati Clark CNM, FNP :1995 A ge:29 Y S ex:Male(T) Date:06/25/2024 Address:[address] [place] [address], [id number] Subjective: * Chief Complaints: * G AH Start * Electronic signature of Dre Clark CNM on 08/14/2025 at 06:54 PM EST Sign off status: Pending * Provider: Pati Clark CNM, FNP Date: 0 06/25/2024 Generated for Ramesh tinajero/Rosi/eTransmitting on: 1 10/14/2024 06:54 PM EST
--- OUTSIDE RECORDS SUMMARY | 2024-11-07 05:15 | XMS_ITS ---
Author Organization [facility] Address [address] [place] [address] Care Team Providers Care Concrete Tile Machine Operator Name Role Phone BARBARA RODRIGUEZ Unavailable [phone] REASON FOR VISIT GAH f/u Social History Sex Assigned At : Social History Observation Description Sex Assigned At Male Encounters Encounter Location Date Provider Diagnosis [facility] [address] [place], [place] [phone] 11/07/2024 BARBARA RODRIGUEZ Plan Of Treatment No Information Progress Notes * Lucas NANCEDOB:[birth year] (30 yo M)Acc No.[id number]:11/07/2024 Gender affirming hormones fo llow up visit Patient: Lucas Jeffery Provider: Yesenia Chang CNM :1995 A ge:29 Y S ex:Male(T) Date:11/07/2024 Address:[address] [place] [address], [id number] Subjective: * Chief Complaints: * G AH f/u * Electronic signature of ABBIE RODRIGUEZ CNM on 08/14/2025 at 06:54 PM EST Sign off status: Pending * Provider: Yesenia Chang CNM Date: 0 11/07/2024 Generated for Ramesh tinajero/Rosi/eTransmitting on: 1 10/14/2024 06:54 PM EST
--- OUTSIDE RECORDS SUMMARY | 2024-11-20 08:30 | XMS_ITS ---
Author Organization [facility] Address [address] [place] [address] Care Team Providers Care Broadcast Maintenance Engineer Name Role Phone BARBARA RODRIGUEZ Unavailable [phone] REASON FOR VISIT GAH f/u Medications Medication SIG (Take, Route, Frequency, Duration) Notes Start Date End Date Status Melatonin PRN Active traZODone HCl PRN Active hydrOXYzine HCl Acti ve cloNIDine Active Suboxone 8mg daily Active Multivitamin Active Prometrium 200 MG Capsule 1 capsule at bedtime Orally Once a day; Duration: 30 days 07/11/2024 Active Biscolax PRN Active Estradiol Valerate 0.18mg every 5 days Active Estradiol Valerate 40 MG/ML Oil 0.18 mL Intramuscular weekly; Duration: 30 days change multiuse vial every 28 days 07/11/2024 Active Wellbutrin 300mg Active Benztropine Mesylate 1mg daily Active Disulfiram Active Vraylar 1.5 mg daily Active Social History Sex Assigned At : Social History Observation Description Sex Assigned At Male Encounters Encounter Location Date Provider Diagnosis [address] [place] [phone] 11/20/2024 BARBARA RODRIGUEZ Plan Of Treatment No Information Progress Notes * HINTON, LucasDOB:[birth year] (30 yo M)Acc No.[id number]:11/20/2024 Gender affirming hormones fo llow up visit Patient: Lucas Jeffery Provider: Yesenia Chang CNM :1995 A ge:29 Y S ex:Male(T) Date:11/20/2024 Address:[address] [place] [address], [place], [facility] Subjective: * Chief Complaints: * G AH f/u * Medications: T akingBiscolax , Notes to Pharmacist: PRNEstradiol Valerate , Notes to Pharmacist: 0.18mg every 5 daysMultivitamin Melatonin , Notes to Pharmacist: PRNtraZODone HCl , Notes to Pharmacist: PRNhydrOXYzine HCl cloNIDine Suboxone , Notes to Pharmacist: 8mg dailyWellbutrin , Notes to Pharmacist: 300mgBenztropine Mesylate , Notes to Pharmacist: 1mg dailyDisulfiram Vraylar , Notes to Pharmacist: 1.5 mg dailyEstradiol Valerate 40 MG/ML Oil 0.18 mL Intramuscular weekly change multiuse vial every 28 daysPrometrium 200 MG Capsule 1 capsule at bedtime Orally Once a day Taking Biscolax , Notes to Pharmacist: PRNTaking Estradiol Valerate , Notes to Pharmacist: 0.18mg every 5 daysTaking Multivitamin Taking Melatonin , Notes to Pharmacist: PRNTaking traZODone HCl , Notes to Pharmacist: PRNTaking hydrOXYzine HCl Taking cloNIDine Taking Suboxone , Notes to Pharmacist: 8mg dailyTaking Wellbutrin , Notes to Pharmacist: 300mgTaking Benztropine Mesylate , Notes to Pharmacist: 1mg dailyTaking Disulfiram Taking Vraylar , Notes to Pharmacist: 1.5 mg dailyTaking Estradiol Valerate 40 MG/ML Oil 0.18 mL Intramuscular weekly change multiuse vial every 28 daysTaking Prometrium 200 MG Capsule 1 capsule at bedtime Orally Once a day * Electronic signature of ABBIE RODRIGUEZ CNM on 08/14/2025 at 06:55 PM EST Sign off status: Pending * Provider: Yesenia Chang CNM Date: 0 11/20/2024 Generated for Ramesh tinajero/Rosi/Jacqui on: 1 10/14/2024 06:55 PM EST
--- OUTSIDE RECORDS SUMMARY | 2024-12-30 07:30 | XMS_ITS ---
Author Organization [facility] Address [address] [place] [place] [address] Care Team Providers Care Livestock Broker Name Role Phone BARBARA RODRIGUEZ Unavailable [phone] Social History Sex Assigned At : Social History Observation Description Sex Assigned At Male Encounters Encounter Location Date Provider Diagnosis [facility] [address] [place], [place] [phone] 12/30/2024 BARBARA RODRIGUEZ Plan Of Treatment No Information Progress Notes * Lucas NANCEDOB:[birth year] (30 yo M)Acc No.[id number]:12/30/2024 Gender affirming hormones fo llow up visit Patient: Lucas Jeffery Provider: Yesenia Chang CNM :1995 A ge:29 Y S ex:Male(T) Date:12/30/2024 Address:[address] [place] [address], [id number] * Electronic signature of ABBIE RODRIGUEZ CNM on 08/14/2025 at 06:55 PM EST Sign off status: Pending * Provider: Yesenia Chang CNM Date: 0 12/30/2024 Generated for Ramesh tinajero/Rosi/eTransmitting on: 10/14/2024 06:55 PM EST
--- OUTSIDE RECORDS SUMMARY | 2025-02-13 09:00 | XMS_ITS ---
Author Organization [facility] Address [address] [place] [address] Care Team Providers Care Calender Inspector Name Role Phone Jose D Chaudhari Primary Care Provider REASON FOR VISIT Office: 3 month follow up, HUDDLE: COVID vax; refills?, VISIT: tobacco; STD risk and monitoring, Symptom screening by [facility] staff pre entrance to clinic Medications Medication SIG (Take, Route, Frequency, Duration) Notes Start Date End Date Status DISULFIRAM 500 mg 1 tab(s) orally once a day for 30 days note dose chnage Active NICOTINE 2 mg 1 GUM chewed every 4 hours for 30 days prefers cinnamon Active CLONIDINE 0.2 mg 1 tab(s) orally fani y at bedtime; and prn anxiety for 30 days 02/08/2024 Active MULTIVITAMIN Therapeutic Multiple Vitamins 1 cap(s) orally once a day for 90 days Active HYDROXYZINE hydrochloride 50 mg 1 tab(s) orally 4 times a day for 30 days As needed foir anxiety 02/23/2024 Active THIAMINE 100 mg 1 tab(s) orally once a day for 7 day(s) 02/23/2024 Active MIRALAX 02/23/2024 Not-Takin g VRAYLAR 1.5 mg 1 cap(s) orally once a day for 30 days Active BENZTROPINE 1 mg 1 tab(s) orally daily for 30 days As needed Active BUPROPION 300 mg/24 hours 1 tab(s) orally every 24 hours for 30 days 02/23/2024 Active ESTRADIOL valerate 40 mg/mL 0.18 ml intramuscularly every 5 days for 30 days 08/22/2023 Active PROGESTERONE 100 mg 2 tabs orally once a day (at bedtime) Active SUBOXONE 4 mg-1 mg 1 film sublingually twice a day for 30 days 02/23/2024 Active TRAZODONE 50 mg 2 tab orally at bedt [place] if needed for 28 days Active MELATONIN 3 mg 1 tab(s) orally once a day (at bedtime) As needed 02/23/2024 Active Social History Sex Assigned At : Social History Observation Description Sex Assigned At Male Encounters Encounter Location Date Provider Diagnosis [facility] [address] [place], [place] [id number] 02/13/2025 Jose D Chaudhari Encounter for screening for COVID-19 Z11.52 Assessments Encounter Date Diagnosis (ICD Code) Assessment Notes Treatment Notes Treatment Clinical Notes Section Notes 02/13/2025 Encounter for screening for COVID-19 (ICD-10 - Z11.52) Covid screening is negative. Discussed in detail with patient how to practice social distancing by avoiding public spaces and crowds now, wearing a mask in public to keep nose and mouth covered, and washing hands frequently especially before eating and after using the bathroom. Return to clinic if you develop any symtpoms of concern to be rescreened or go to the emergency room if you are having concerning symptoms for COVID-19. 02/13/2025 Other Plan Of Treatment Treatment Notes Assessment Notes Encounter for screening for COVID-19 Cov id screening is negative. Discussed in detail with patient how to practice social distancing by avoiding public spaces and crowds now, wearing a mask in public to keep nose and mouth covered, and washing hands frequently especially before eating and after using the bathroom. Return to clinic if you develop any symtpoms of concern to be rescreened or go to the emergency room if you are having concerning symptoms for COVID-19. Progress Notes * Lucas NANCEDOB:[birth year] (30 yo M)Acc No.[id number]:02/13/2025 Progress Notes Patient: Lucas MOREIRA Provider: Annabel Chaudhari MD :1995 A ge:29 Y S ex:Male(T) Date:02/13/2025 Address:[address] [place] [address], [place] [id number] Subjective: * Chief Complaints: * 1 . Office: 3 month follow up. 2. HUDDLE: COVID vax; refills?. 3. VISIT: tobacco; STD risk and monitoring. 4. Symptom screening by [facility] staff pre entrance to clinic. * HPI: G eneral: Symptom Screen: - Fever in the last 1 week? Patient denies - New or worsening cough in the last 1 week? Patient denies. - Contact will known COVID exposure in last 5 days? Patient denies -new rash within last 3 weeks? Patient denies - Have you received the COVID-19 vaccine? yes - Have you received COVID-19 booster? no - Have you been tested positive for COVID -19 in the last 7 days? If so where and why? RN/MA: AB: HUDDLE: COVID vax; refills?, VISIT: tobacco; STD risk and monitoring, As of 3:50 had not arived for 2:00 appt CAlling [phone]. NO answer. left to call us back C[facility]ing again at 5:57 - same. * ROS: N o acute C/P no acute SOB, No problem with urine, No heartburn or abdominal pain. Endorses being able to climb one fight of stairs without stopping due to SOB, Mood: stable, appetite: good, sleeping well. Denies new skin rashes. * Medical History: * Medications: T aking PROGESTERONE 100 mg capsule 2 tabs orally once a day (at bedtime) , Taking ESTRADIOL valerate 40 mg/mL solution 0.18 ml intramuscularly every 5 days , Taking TRAZODONE 50 mg tablet 2 tab orally at bedtime if needed , Taking SUBOXONE 4 mg- 1 mg film 1 film sublingually twice a day , Taking MELATONIN 3 mg tablet 1 tab(s) orally once a day (at bedtime) As needed, Taking THIAMINE 100 mg tablet 1 tab(s) orally once a day , Taking BENZTROPINE 1 mg tablet 1 tab(s) orally daily As needed, Taking VRAYLAR 1.5 mg capsule 1 cap(s) orally once a day , Taking BUPROPION 300 mg/24 hours tablet, extended release 1 tab(s) orally every 24 hours , Taking HYDROXYZINE hydrochloride 50 mg tablet 1 tab(s) orally 4 times a day As needed foir anxiety, Taking NICOTINE 2 mg gum 1 GUM chewed every 4 hours prefers cinnamon, Taking DISULFIRAM 500 mg tablet 1 tab(s) orally once a day note dose chnage, Taking MULTIVITAMIN Therapeutic Multiple Vitamins capsule 1 cap(s) orally once a day , Taking CLONIDINE 0.2 mg tablet 1 tab(s) orally daily at bedtime; and prn anxiety , Not-Taking/PRN MIRALAX Objective: * Vitals: Assessment: * Assessment: 1. E ncounter for screening for COVID-19 - Z11.52 (Primary) Plan: * Treatment: * Images: Billing Information: * Visit Code: * Procedure Codes: Care Plan Details* * Electronic signature of Flavia Chaudhari MD on 08/14/2025 at 06:55 PM EST Sign off status: Pending * Provider: Annabel Chaudhari MD Date: 0 02/13/2025 Generated for Ramesh tinajero/Rosi/Jacqui on: 1 10/14/2024 06:55 PM EST
--- OUTSIDE RECORDS SUMMARY | 2025-06-21 16:00 | XMS_ITS ---
Author Organization [facility] Address [address] [place] [address] Care Team Providers Care Manager Support Name Role Phone Jose D Chaudhari Primary Care Provider Migration, Provider Unavailable Unavailable Allergies Allergen (clinical drug ingredient) Drug/Non Drug Allergy documented on EMR Reaction Allergy Type Onset Date Status naltrexone Vivitrol agitation/ SI Drug Allergy Ac tive REASON FOR VISIT [facility] Encounter Medications Medication SIG (Take, Route, Frequency, Duration) Notes Start Date End Date Status Estradiol VALERATE 40 MG/ML 0.18 ML INTRAMUSCULARLY EVERY 5 DAYS for 30 DAYS *Please review and pick correct strength-formula tion from [employer] options. If intended option is not shown, discontinue and re-order from Quick Search* 08/22/2023 Active Progesterone 100 MG 2 tabs orally once a day (at bedtime) Active Melatonin 3 MG 1 tab(s) orally once a day (at bedtime) 02/23/2024 Active Suboxone 4-1 MG 1 film sublingually twice a day for 30 days 02/23/2024 Active traZODone HCl 50 MG 2 tab orally at bedtime if needed for 28 days Active Disulfiram 500 MG 1 tab(s) orally once a day for 30 days Active Nicotine Polacrilex 2 MG 1 GUM chewed every 4 hours for 30 days Active hydrOXYzine HCl 50 MG 1 tab(s) orally 4 times a day for 30 days 02/23/2024 Active cloNIDine HCl 0.2 MG 1 tab(s) orally daily at bedtime; and prn anxiety for 30 days 02/08/2024 Active Multi Vitamin THERAPEUTIC MULTIPLE VITAMINS 1 CAP(S) ORALLY ONCE A DAY for 90 DAYS *Please review and pick correct strength-formula tion from [employer] options. If intended option is not shown, discontinue and re-order from Quick Search* Active Thiamine HCl 100 MG 1 tab(s) orally once a day for 7 day(s) 02/23/2024 Active buPROPion HCl ER (XL) 300 MG 1 tab(s) orally every 24 hours for 30 days 02/23/2024 Active Vraylar 1.5 MG 1 cap(s) orally once a day for 30 days Active Benztropine Mesylate 1 MG 1 tab(s) orally daily for 30 days Active MiraLax *Please review and pick correct strength-formula tion from [employer] options. If intended option is not shown, discontinue and re-order from Quick Search* 02/23/2024 Not-Taking Social History Sex Assigned At : Social History Observation Description Sex Assigned At Male Encounters Encounter Location Date Provider Diagnosis [address] [address] 06/21/2025 Provider Migration Plan Of Treatment No Information Progress Notes * Lucas NANCEDOB:[birth year] (30 yo M)Acc No.[id number]:06/21/2025 Patient: S Lucas LENNON Provider: :1995 A ge:30 Y S ex:Male(T) Date:06/21/2025 Address:[address] [place] [address], [place], [place]-[id number] Pcp:Jose D Chaudhari Subjective: * Chief Complaints: * 1 . [facility] * Medical History: * Medications: T aking Progesterone 100 MG Capsule 2 tabs orally once a day (at bedtime) , Taking Estradiol VALERATE 40 MG/ML SOLUTION 0.18 ML INTRAMUSCULARLY EVERY 5 DAYS , Notes to Pharmacist: *Please review and pick correct strength-formulation from [facility] options. If intended option is not shown, discontinue and re-order from Quick Search*, Taking traZODone HCl 50 MG Tablet 2 tab orally at bedtime if needed , Taking Suboxone 4-1 MG Film 1 film sublingually twice a day , Taking Melatonin 3 MG Tablet 1 tab(s) orally once a day (at bedtime) , Taking Thiamine HCl 100 MG Tablet 1 tab(s) orally once a day , Taking Benztropine Mesylate 1 MG Tablet 1 tab(s) orally daily , Taking Vraylar 1.5 MG Capsule 1 cap(s) orally once a day , Taking buPROPion HCl ER (XL) 300 MG Tablet Extended Release 24 Hour 1 tab(s) orally every 24 hours , Taking hydrOXYzine HCl 50 MG Tablet 1 tab(s) orally 4 times a day , Taking Nicotine Polacrilex 2 MG Gum 1 GUM chewed every 4 hours , Taking Disulfiram 500 MG Tablet 1 tab(s) orally once a day , Taking Multi Vitamin THERAPEUTIC MULTIPLE VITAMINS CAPSULE 1 CAP(S) ORALLY ONCE A DAY , Notes to Pharmacist: *Please review and pick correct strength-formulation from [employer] options. If intended option is not shown, discontinue and re-order from Quick Search*, Taking cloNIDine HCl 0.2 MG Tablet 1 tab(s) orally daily at bedtime; and prn anxiety , Not-Taking/PRN MiraLax , Notes to Pharmacist: *Please review and pick correct strength-formulation from [employer] options. If intended option is not shown, discontinue and re-order from Quick Search* * Allergies: V ivitrol: agitation/ SI - Side Effects. Objective: * Vitals: Assessment: Plan: * Treatment: * Images: Billing Information: * Visit Code: * Procedure Codes: * Electronic signature of Prov ider Migration on 08/14/2025 at 06:55 PM EST Sign off status: Pending * Provider: Date: 0 06/21/2025 Generated for Ramesh tinajero/Rosi/Jacqui on: 10/14/2024 06:55 PM EST
[2025-08-14 18:24] VITALS: BP 152/77; PULSE 113; RESP 18; TEMP 36.8; O2SAT 100; BMI 25.7
--- NOTE | 2025-08-14 18:24 | ED_ITS ---
HPI - General Adult General Chief complaint: Psychiatric Symptoms Stated complaint: SI Time Seen by Provider: 08/14/25 19:08 History of Present Illness ED Provider: Roberto Perez MD HPI narrative: 30-year-old patient with PTSD schizoaffective disorder here with SI. Patient tells me she drinks every day few tall boy beers. Feeling anxious lots of ruminating thoughts. To me denies SI or HI but agrees she needs help. Care team evaluated the patient before me and came up with a plan for inpatient which the patient is agreeable to. No acute medical complaints no history of alcohol withdrawal last drink was just before she came to the ED Related Data Home Medications ?Medication ?Instructions ?Recorded ?Confirmed No Known Home Meds 08/14/25 08/14/25 Allergies Allergy/AdvReac Type Severity Reaction Status Date / Time No Known Allergies Allergy Verified 08/14/25 18:25 [facility] Past Medical History Medical History Psychogenic nonepileptic seizure Dissociation PTSD (post-traumatic stress disorder) Schizoaffective disorder History of hormone therapy Schizophrenia Social History Social History Household Members: None Housing: Homeless Do you presently have visiting nurse or other home services: No Unable to assess alcohol history related to: Unable to respond Patient Tobacco Use Status: Current someday Tobacco user Tobacco use type: Cigarette Cigarette Packs Per Day: 0 Cigarettes Per Day: 2 Smoked in Last 30 Days: Yes e-Cigarette/Vaping Use: Never Used Patient Interested in Nicotine Replacement: No Patient Given Instructions on How to Stop Smoking: No (Pt declined) Second Hand Smoke Exposure: No Substance Use Type: Marijuana Currently Displaying Signs/Symptoms of Drug Intoxication Withdrawal: No Have you been hit, kicked, punched, or otherwise hurt by someone within the past year? If so, by whom?: No Do you feel safe in your current relationship?: No Current Relationship Is there a partner from a previous relationship who is making you feel unsafe now?: No Are you made to feel afraid or neglected: No Spiritual Healthcare Practices: Denies Alevism Healthcare Practices: Denies Cultural Healthcare Practices: Denies Advance Directives: No Advance Directives Information Provided: No Do you have thoughts of harming others: None Do you have a plan to hurt others: No Plan Recently lost weight without trying: No Eating poorly because of decreased appetite: No Nutrition Risks: No Nutritional Risk Poor oral hygiene: No service: No Sexual orientation: Transgender female Physical Exam ED Exam Exam: EXAM: Gen: Alert, awake, well appearing, well hydrated. Alcohol on breath. Pleasant and cooperative Head: Atraumatic Eyes: Anicteric, Normal conjunctiva. ENT: Moist mucosa, no pallor. ? Neck: Supple. Skin: ?No observable rash or bruising on exposed or examined skin Respiratory: Breathing comfortably, No distress.Clear to auscultation bilaterally, symmetric chest expansion, No wheeze, rales, ronchi. Cardiovascular: Regular rate and rhythm. No murmurs or rub. Well perfused periphery, warm extremities. No edema. ? Abdominal: No focal tenderness. Soft, no objective distension. No palpable masses or obvious organomegaly. ?No guarding, no rebound tenderness or other peritoneal findings. : No flank tenderness. Neuro: Alert. Gross movement of all extremities intact. ?Cranial nerve exam not relevant to presentation Psych: Calm. Cooperative. Reporting anxiety. Alcohol use regularly MSK: No grossly visible deformity. Vital signs: See flowsheet Vital Signs: Vital Signs - 24 hr 08/14/25 18:24 08/14/25 18:51 Temperature 98.3 F 98.6 F Pulse Rate 113 H 117 H Respiratory Rate 18 20 Blood Pressure 152/77 H 134/68 Pulse Oximetry 100 100 Oxygen Delivery Method Room Air Room Air BMI result Body Mass Index 25.7 Course Course Course Narrative: Rapid medical examination performed in triage by Hodan Ureña PA-C: Patient is a 30 year old assigned male at , now female, presenting to the emergency department with suicidal ideation. Detailed physical exam and review of systems are deferred to the primary grade teacher. boom conveyor operator aware. Reevaluation(s) Reevaluation #1: 9:47 PM 08/14/2025 (Dr. Roberto Perez): Medical clearance established. ETOH on breath. No evidence of alcohol withdrawal should be monitored for this. Sounds like there maybe an inpatient plan physician observation began at this time Reevaluation #2: 08/15/25 Provider: Shamar Zimmer MD 05:34 Patient in physician observation for psychiatric evaluation.? No acute events reported overnight. No current complaints. VS stable.? Patient was seen by CARE team and is IPLOC/bedsearch.Will continue to monitor. 13:25 Physician observation ended at 13:25 hours. Patient wasad[facility] as inpatient [facility]. Medications Administered Generic Name Dose Route Start Last Admin Trade Name Freq PRN Reason Stop Dose Admin Hydroxyzine HCl 50 mg 08/15/25 17:35 08/17/25 21:21 Hydroxyzine Hcl 50 Mg Tablet PO 50 mg Q6H PRN Administration mild anxiety Nicotine Polacrilex 4 mg 08/15/25 10:55 08/17/25 21:21 Nicotine Polacrilex 2 Mg Gum BUCCAL 4 mg Q2H PRN Administration Nicotine Cravings Discontinued Medications Generic Name Dose Route Start Last Admin Trade Name Freq PRN Reason Stop Dose Admin Thiamine HCl 100 mg 08/14/25 21:54 08/14/25 22:00 Thiamine Hcl 100 Mg Tablet PO 08/14/25 21:55 100 mg ONCE ONE Administration Medical Decision Making Medical Decision Making MDM Narrative: Medical Decision Makin-year-old transgender female schizoaffective PTSD history alcohol use. No evidence of withdrawal syndrome. Alcohol on breath. No acute medical complaints nor any medical emergent findings on workup and examination. Deferred to care team disposition planning Preliminary Favored Differential Diagnosis: [ ] among additional considered etiologies Testing Interpreted Independently: RBCs/hematuria Radiology or Lab testing Results Reviewed: ?See below for details Consults: ?See below for details Independent Historians/External Chart Reviews: ?See below for details Social Determinants of Health Impacting MDM/Planning: ?See below for details Lab Data 08/14/25 19:08 08/14/25 19:08 Labs: Lab Results 08/14/25 08/14/25 Range/Units 19:08 19:09 WBC 11.3 H (4.8-10.8) X10*3/uL RBC 4.16 L (4.60-5.80) X10*6/uL Hgb 13.2 L (14.0-18.0) g/dl Hct 38.3 L (42.0-52.0) % MCV 92.1 (80.0-98.0) fL MCH 31.7 (27.0-33.0) pg MCHC 34.5 (31.0-36.0) g/dl RDW 11.9 (11.0-16.0) % Plt Count 214 (160-400) X10*3/uL MPV 8.9 L (9.4-12.4) fL Immature Gran % (Auto) 0.2 (0.0-0.4) % Neut % (Auto) 68.6 (45-73) % Lymph % (Auto) 20.0 (20-40) % [place] % (Auto) 9.1 (2-11) % Eos % (Auto) 1.7 (0-4) % Baso % (Auto) 0.4 (0-2) % Lymph # (Auto) 2.3 (1.2-4.9) X10*3/uL [place] # (Auto) 1.0 (0.1-1.2) X10*3/uL Eos # (Auto) 0.2 (0.0-0.4) X10*3/uL Baso # (Auto) 0.1 (0.0-0.2) X10*3/uL Abs Immat Gran (auto) 0.02 (0.00-0.03) X10*3/uL Absolute Neuts (auto) 7.7 (2.0-8.3) x10*3/uL Absolute Nucleated RBC 0.000 (0.0-0.012) X10*3/uL Nucleated RBC % (auto) 0.0 (0.0-0.2) /100WBC Sodium 143 (135-145) mmol/L Potassium 3.7 (3.3-5.1) mmol/L Chloride 108 (96-108) mmol/L Carbon Dioxide 24 (22-29) mmol/L Anion Gap 15 (12-20) BUN 13 (9-16) mg/dL Creatinine 0.94 (0.5-1.4) mg/dL Estim Creat Clear Calc 126.1 Estimated GFR > 60 Random Glucose 107 (60-115) mg/dL Calcium 8.7 (8.4-10.2) mg/dL Total Bilirubin 0.2 (0.0-1.0) mg/dL AST 37 (5-37) U/L ALT 29 (0-40) U/L Alkaline Phosphatase 59 (39-117) U/L Total Protein 6.8 (6.5-8.0) g/dL Albumin 4.2 (3.5-5.0) g/dL Urine Color Dark Yellow Urine Appearance Clear Urine pH 6.0 (5.0-9.0) Ur Specific [place] 1.025 (1.005-1.025) Urine Protein Trace (Neg-Trace) mg/dL Urine Glucose (UA) Negative (Negative) mg/dL Urine Ketones Trace (Negative) mg/dL Urine Blood Small (1+) H (Negative) Urine Nitrite Negative (Negative) Ur Leukocyte Esterase Negative (Negative) Urine RBC 11-20 H (0-2) /HPF Urine WBC 0-5 (0-5) /HPF Ur Squamous Epith Cells 0-2 (0-2) /HPF Urine Bacteria None Seen (None Seen) Hyaline Casts 0-2 (0-2) /LPF Salicylates < 5.0 L (15-30) mg/dL Urine Opiates Screen Not Detected (Not Detect) Ur Buprenorphine Scrn Not Detected (Not Detect) ng/mL Ur Oxycodone Screen Not Detected (Not Detect) ng/mL Urine Methadone Screen Not Detected (Not Detect) ng/mL Urine Fentanyl Screen Not Detected (Not Detect) Acetaminophen < 3 (<30) mcg/mL Ur Barbiturates Screen Not Detected (Not Detect) Ur Phencyclidine Scrn Not Detected (Not Detect) Ur Amphetamines Screen Not Detected (Not Detect) U Benzodiazepines Scrn Not Detected (Not Detect) Urine Cocaine Screen Not Detected (Not Detect) U Marijuana (THC) Screen POSITIVE H (Not Detect) Ethyl Alcohol 130 mg/dL COVID-19 (ROSEMARY) Negative (Negative) COVID-19 Clin Com See Note Discharge Plan Discharge Clinical Impression: Suicidal ideation Patient Disposition: Admitted As Inpatient Interventions: Admission Worksheet (ED) Last Done: 08/15/25 13:25 Discharge Date/Time: 08/15/25 14:13
[2025-08-14 18:51] VITALS: BP 134/68; PULSE 117; RESP 20; TEMP 37; O2SAT 100
--- OUTSIDE RECORDS SUMMARY | 2025-08-14 18:55 | XMS_ITS | Patient Health Record ---
Author Organization [facility] Address [address] [place] [address] Care Team Providers Care Ssis Developer Name Role Phone Jose D Chaudhari Primary Care Provider [facility], Nursing Unavailable [phone] Migration, Provider Unavailable Unavailable Allergies Allergen (clinical drug ingredient) Drug/Non Drug Allergy documented on EMR Reaction Allergy Type Onset Date Status naltrexone Vivitrol agitation/ SI Drug Allergy Ac tive Results Component Value Reference Range Notes HEPATITIS B SURFACE AB IMMUN ITY, QN Reviewed date:08/22/2024 09:21:24 PM Interpretation:immune Performing Lab:NL2, [facility] [id number] Medina Powell Notes/Report: FASTING: UNKNOWN HEPATITIS B SURFACE AB IMMUN ITY, QN 29 > OR = 10 mIU/mL PATIENT HAS IMMUNITY TO HEPATITIS B VIRUS. For additional information, please refer to http://education.Hstry.ProtAb/faq/PPB578 (This link is being provided for informational/ educational purposes only). LIPID PROFILE Reviewed date:11/14/2024 02:51:41 PM Interpretation:Normal Performing Lab: Notes/Report: Normal CHOLESTEROL 184 HDL CHOLESTEROL 78 LDL CALCULATED 84 TRIGLYCERIDES 65 Reason For Referral No Information Medications Medication SIG (Take, Route, Frequency, Duration) Notes Start Date End Date Status Estradiol VALERATE 40 MG/ML 0.18 ML INTRAMUSCULARLY EVERY 5 DAYS for 30 DAYS *Please review and pick correct strength-formula tion from Medispan options. If intended option is not shown, discontinue and re-order from Quick Search* 08/22/2023 Active Disulfiram 500 MG 1 tab(s) orally once a day for 30 days Active Progesterone 100 MG 2 tabs orally once a day (at bedtime) Active Nicotine Polacrilex 2 MG 1 GUM chewed every 4 hours for 30 days Active hydrOXYzine HCl 50 MG 1 tab(s) orally 4 times a day for 30 days 02/23/2024 Active Thiamine HCl 100 MG 1 tab(s) orally once a day for 7 day(s) 02/23/2024 Active Melatonin 3 MG 1 tab(s) orally once a day (at bedtime) 02/23/2024 Active Suboxone 4-1 MG 1 film sublingually twice a day for 30 days 02/23/2024 Active cloNIDine HCl 0.2 MG 1 tab(s) orally daily at bedtime; and prn anxiety for 30 days 02/08/2024 Active traZODone HCl 50 MG 2 tab orally at bedtime if needed for 28 days Active Multi Vitamin THERAPEUTIC MULTIPLE VITAMINS 1 CAP(S) ORALLY ONCE A DAY for 90 DAYS *Please review and pick correct strength-formula tion from [employer] options. If intended option is not shown, discontinue and re-order from Quick Search* Active buPROPion HCl ER (XL) 300 MG 1 tab(s) orally every 24 hours for 30 days 02/23/2024 Active Vraylar 1.5 MG 1 cap(s) orally once a day for 30 days Active Benztropine Mesylate 1 MG 1 tab(s) orally daily for 30 days Active MiraLax *Please review and pick correct strength-formula tion from [employer] options. If intended option is not shown, discontinue and re-order from Quick Search* 02/23/2024 Not-Taking Immunizations Vaccine Route Administration Date Status Comme nts Influenza IM Intramuscular 08/22/2023 Administered Influenza IM Intramuscular 08/20/2024 Administered Tdap IM Intramuscular 08/20/2024 Administered [employer] Covid-19 Vaccine Administration - First Dose (Single Dose 30MCG/0.3ML 1ST) Unknown 01/28/2021 Administered Social History Tobacco Use: Social History Observation Description Date Details (start date - stop date) Current Smoker NA - NA Sex Assigned At : Social History Observation Description Sex Assigned At Male Tobacco Use Assessment MU Question Answer Notes What is your current smoking status? current smoker How often do you smoke? every day How many cigarettes a day do you smoke? 6-10 can vary from less than 5 to 1 pk also vapes How soon after you wake up d o you smoke your first cigarette? 6-30 minutes Are you interested in quitting? 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) Active confirmed Problem Transsexual (finding) (284295072) 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 Problem Body mass index 20-24 - normal (201075015) Body mass index [BMI] 23.0-23.9, adult (Z68.23) Active confirmed Problem Sheltered homelessness (934989358744638) Sheltered homelessness (Z59.01) Active confirmed Vital Signs Temperature 97.7 degrees Fahrenheit 11/14/2024 Blood pressure diastolic 86 11/14/2024 Oximetry 99 11/14/2024 Height 72.5 in 11/14/2024 Blood pressure systolic 141 11/14/2024 Weight 172 lbs 11/14/2024 BMI 23 kg/m2 11/14/2024 Encounters Encounter Location Date Provider Diagnosis [address] [address] 06/21/2025 Provider Migration [facility] [address] [place] [address] [phone] 08/15/2024 Jose D Chaudhari Encounter for screening for COVID-19 Z11.52 ; Nicotine dependence, cigarettes, uncomplicated F17.210 ; Alcohol use, unspecified with alcohol-induced mood disorder F10.94 ; Sheltered homelessness Z59.01 ; Elevated blood-pressure reading, without diagnosis of hypertension R03.0 and Transsexualism F64.0 [facility] [address] [place] [address] [phone] 08/20/2024 Nursing [facility] Encounter for screening for infectious and parasitic diseases, unspecified Z11.9 and Encounter for immunization Z23 [address] [address] 11/14/2024 Jose D Chaudhari Encounter for screening for COVID-19 Z11.52 ; Conversion disorder with seizures or convulsions F44.5 ; Sheltered homelessness Z59.01 ; Alcohol use, unspecified with alcohol-induced mood disorder F10.94 ; Transsexualism F64.0 and Nicotine dependence, cigarettes, uncomplicated F17.[address] [address] 08/15/[address] [address] 10/29/[address] [address] 11/01/[address] [facility] [address] [place] [phone] 11/11/2024 Jose D [address] [address] 02/13/2025 Jose D [address] [address] 07/24/2025 Jose D [address] [address] 08/20/2024 Jose D Chaudhari Assessments Encounter Date Diagnosis (ICD Code) Assessment Notes Treatment Notes Treatment Clinical Notes Section Notes 08/15/2024 Nicotine dependence, cigarettes, uncomplicated (ICD-10 - F17.210) Most of the time (4 mintues) Spent on drive to smoke, use of gum. I am Ok droping back to 2 mg as 4 mg causes GI upset. AGUSTIN hirsch 08/15/2024 Encounter for screening for COVID-19 (ICD-10 - [...] you are having concerning symptoms for COVID-19. 08/20/2024 Encounter for screening for infectious and parasitic diseases, unspecified (ICD-10 - Z11.9) Labs drawn per protocol, no difficulties, sent to lab, pt to RTC for f/u 08/20/2024 Encounter for immunization (ICD-10 - Z23) Screening performed for vaccine contraindications prior to administration. VIS reviewed. No contraindications for vaccine administration. Tdap and influenza vaccines given per protocol. No adverse outcome with administration of vaccine. 11/14/2024 Conversion disorder with seizures or convulsions (ICD-10 - F44.5) Plays in to the anxiety issue and I am ok with clonidine prn dose on an occasional basis. Discussed noit abruptly stopping oif finds self at more frequent dosing. Also telling pREP rx writerthat we will take care of this med here 11/14/2024 Encounter for screening for COVID-19 (ICD-10 - [...] you are having concerning symptoms for COVID-19. 08/15/2024 Alcohol use, unspecified with alcohol-induced mood disorder (ICD-10 - F10.94) [facility] recognizes being tenuous. Supported program helps 11/14/2024 Sheltered homelessness (ICD-10 - Z59.01) [facility] but hope sit is not permanent 08/15/2024 Sheltered homelessness (ICD-10 - Z59.01) see above re; housing 11/14/2024 Alcohol use, unspecified with alcohol-induced mood disorder (ICD-10 - F10.94) In much better control. Nutrition OK and does not need the folate or thiamine 08/15/2024 Elevated blood-pressure reading, without diagnosis of hypertension (ICD-10 - R03.0) BP WNL today-follow. Doing more walking 11/14/2024 Transsexualism (ICD-10 - F64.0) Moving forward. Letter written. Suuport offered 08/15/2024 Transsexualism (ICD-10 - F64.0) feels comfortabke with crrent hormone rx and care at [facility] 11/14/2024 Nicotine dependence, cigarettes, uncomplicated (ICD-10 - F17.210) decreasing on own butnot ready to stop 02/13/2025 Other 08/15/2024 Other we are trying t o arrange vax day. Asked nurse to find out about hep b immunity (ordered last year but not in charrt)m Will try to get Tdap; flu; Hep A and hoefully COVID up here for nurse visit for shots 11/14/2024 Other recommended [facility] Plan Of Treatment Pending Test Test Name Order Date SEX HORMONE BINDING GLOBULIN 08/10/2023 HEPATITIS B SURFACE AB IMMUNITY, QN 07/09 Insurance Providers Payer Name Payer Address Payer Phone Subscriber Number Group Number Insured Name Patient Relationship to Insured Coverage Start Date Coverage End Date [place] Medicaid C3 [address] [place], [place] [id number] Lucas Flores nd Self - patient is the insured 3 Medical (General) History Medical History History ICD Code post traumatic stress disorder severe mood disorder with psychotic feat ures alcohol abuse in past disassociative seizures Surgical History Surgery Date(Month/Year) tonsil and adenoids removed 1999 Hospitalization History Reason Date(Month/Year) [facility] - psych admit 03/2024 [facility] - psych admit 02/2024 multiple inpatient psych admits
--- OUTSIDE RECORDS SUMMARY | 2025-08-14 18:55 | XMS_ITS | Patient Health Record ---
Author Organization [facility] Address [address] [place] [address] Care Team Providers Care Bat Boy/Girl Name Role Phone BARBARA RODRIGUEZ Unavailable [phone] Dre Clark Unavailable [phone] Allergies Allergen (clinical drug ingredient) Drug/Non Drug Allergy documented on EMR Reaction Allergy Type Onset Date Status naltrexone Vivitrol bad side effects Drug Allergy Active Reason For Referral No Information Medications Medication SIG (Take, Route, Frequency, Duration) Notes Start Date End Date Status Disulfiram Active Biscolax PRN Active Vraylar 1.5 mg daily Active Estradiol Valerate 0.18mg every 5 days Active Multivitamin Active Prometrium 200 MG Capsule 1 capsule at bedtime Orally Once a day; Duration: 30 days 07/11/2024 Active Melatonin PRN Active traZODone HCl PRN Active hydrOXYzine HCl Acti ve cloNIDine Active Suboxone 8mg daily Active Wellbutrin 300mg Active Benztropine Mesylate 1mg daily Active Estradiol Valerate 40 MG/ML Oil 0.18 mL Intramuscular weekly; Duration: 30 days change multiuse vial every 28 days 07/11/2024 Active Social History Sex Assigned At : Social History Observation Description Sex Assigned At Male Social History HIV Risk Assessment Social Info Question Answer Notes Additional Questions Is an HIV Risk Asse ssment being conducted? No Reproductive Life Plan: Social Info Question Answer Notes Reproductive Life Plan: Do you want to have children? Unknown/Not Reported Human Trafficking: Social Info Question Answer Notes Human Trafficking Experienced: No PrEP for HIV: Social Info Question Answer Notes PrEP for HIV Is the client intere sted in beginning/continuing PrEP for HIV? No Sexual History: Social Info Question Answer Notes Sexual History: Sexual History Reviewed: ___ Counseling Provided: Social Info Question Answer Notes Counseling Provided The client was couns eled on the following topics at this visit: Gender Affirming Hormones Please indicate the length o f time, in minutes, that counseling was provided. 5 Counseling Was Provided By: thierry Drugs/Alcohol: Social Info Question Answer Notes Drug/Alcohol Use Do you or have you used drugs? Yes, c urrently caffeine, cannabis Do you or have you used alcohol? No Food Access: Social Info Question Answer Notes Food Access The Client's current access to food is Secure Food Access Relationships: Social Info Question Answer Notes Relationships Has the client experienced any of the following: Harmful Relationships client reports currently safe and comfortable in relationships Gender Affirming Hormone Car e Social Info Question Answer Notes Gender Affirming Hormone Care: How do you describe your gender identity? Select all that apply trans feminine How would you prefer to talk about or refer to your body? anatomical What experience do you have with gender affirming care, if any? Hormones with PCP and PP, lo oking for more consistent care (reason for switching to TH) What are your goals with [facility] gender affirming care? Good regulation around medic ations, progesterone While hormonal treatment is not contraception, it can have an impact on fertility. Is this something you would like to plan for? 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) Other gender identity disorders (F64.8) Active confirmed Problem Gender identity disorder (80846571) Gender identity disorder, unspecified (F64.9) Active confirmed Encounters Encounter Location Date Provider Diagnosis [address] [place], [place] [phone] 09/13/2024 Dre Clark Gender identity disorder, unspecified F64.9 and Hormone replacement therapy Z79.[address] [id number] 08/30/2024 Dre Clark [address] [id number] 09/13/2024 Dre Clark Assessments Encounter Date Diagnosis (ICD Code) Assessment Notes Treatment Notes Treatment Clinical Notes Section Notes 09/13/2024 Gender identity disorder, unspecified (ICD-10 - F64.9) reviewed information for letters of medical necessity, client is good candidate for neovaginoplasty and verbalizes in detail requirements for post-op healing and dilation. We reviewed physiology of need for 100% smoking cessation prior to surgery and client highly motivated. Printed [facility] neovaginoplasty welcome packet and information for hair removal at [facility]. 09/13/2024 Hormone replacement therapy (ICD-10 - Z79.890) Plan Of Treatment No Information Insurance Providers Payer Name Payer Address Payer Phone Subscriber Number Group Number Insured Name Patient Relationship to Insured Coverage Start Date Coverage End Date [place] ATT CLAIMS [address] [place] [id number] Lucas Flores nd Self - patient is the insured Medical (General) History Medical History History ICD Code schizophrenia depression typ e, PTSD- actively engaged with mental health team including psychiatry hx past hospitalization- psychosis, diss ociative seizures Hospitalization History Reason Date(Month/Year) 10 hospitalizations between 09/2023-05/2024-- psych or seizure related
[2025-08-14 19:16] LABS: MANUAL DIFF FLAG NO
[2025-08-14 19:17] LABS: Hematocrit 38.3 % (42.0-52.0); Hemoglobin 13.2 g/dl (14.0-18.0); Imm Gran Abs Auto 0.02 X10*3/uL (0.00-0.03); Imm Gran Pct Auto 0.2 % (0.0-0.4); Lymphocytes Absolute Auto 2.3 X10*3/uL (1.2-4.9); Mean Corpuscular HGB Conc 34.5 g/dl (31.0-36.0); Mean Corpuscular Hemoglobin 31.7 pg (27.0-33.0); Mean Corpuscular Volume 92.1 fL (80.0-98.0); NRBC Abs Auto 0.000 X10*3/uL (0.0-0.012); NRBC Pct Auto 0.0 /100WBC (0.0-0.2); Platelet Count 214 X10*3/uL (160-400); Red Blood Count 4.16 X10*6/uL (4.60-5.80); White Blood Count 11.3 X10*3/uL (4.8-10.8)
[2025-08-14 19:19] LABS: Appearance Urine Clear; Glucose Urine UA Negative (Negative); PH 6.0 (5.0-9.0); Specific Gravity - Urine 1.025 (1.005-1.025); UMIC TRIGGER UA YES
[2025-08-14 19:30] LABS: Cannabinoid Screen Urine POSITIVE (Not Detect)
[2025-08-14 19:31] LABS: Alanine Aminotransferase 29 U/L (0-40); Albumin Level 4.2 g/dL (3.5-5.0); Alkaline Phosphatase 59 U/L (39-117); Anion Gap 15 (12-20); Aspartate Amino Transferase 37 U/L (5-37); Blood Urea Nitrogen 13 mg/dL (9-16); Calcium 8.7 mg/dL (8.4-10.2); Carbon Dioxide 24 mmol/L (22-29); Chloride 108 mmol/L (96-108); Creatinine Clr Calc Pharmacy 126.1; Estimated Glomerular Filt Rate > 60; Potassium 3.7 mmol/L (3.3-5.1); Sodium 143 mmol/L (135-145); Total Protein 6.8 g/dL (6.5-8.0)
[2025-08-14 19:33] LABS: Acetaminophen LAB < 3 mcg/mL (<30); COVID-19 Test Negative (Negative); IDNOW Serial# 58CA691E; Salicylate < 5.0 mg/dL (15-30)
--- NOTE | 2025-08-15 05:14 | PC.NURSE ---
Assumed care at 1845. Patient initially presents as calm, cooperative, and very polite with staff. Requested food/snacks. No psych medications. Received x1 Vit B1 as ordered. No PRN's used. Denies pain/discomfort. Let it be noted, patient denied SI/HI/AVH to t/w, but once alone in room, patient was observed to be responding to internal stimuli making statements such as I fucking hate you. Stupid! Shut up! Leave me alone When questioned, patient denied AVH and stated I'm really okay. I don't need anything right now. Weighted blanket and POD headphones utilized with great effect. Remains in behavioral control. 15 minute safety checks ongoing. Plan of care ongoing.
[2025-08-15 06:59] VITALS: BP 132/72; PULSE 87; RESP 17; TEMP 36.6; O2SAT 97
--- NOTE | 2025-08-15 07:43 | PC.NURSE ---
Assumed care of patient at 0645, patient appears to be in no apparent distress this am, sitting in room watching TV, calm and cooperative. Continue plan of care for IPLOC
--- NOTE | 2025-08-15 08:16 | PC.NURSE ---
Per patient, she prefers a female roommate
[2025-08-15 13:00] VITALS: BP 140/81; PULSE 78; RESP 16; TEMP 37; O2SAT 98
--- NOTE | 2025-08-15 13:17 | PHA.MEDREC ---
Addendum entered by Jules Baum RPh 08/15/25 14:59: Reviewed by [facility] Original Note: Pharmacy Consult ? Medication Reconciliation Pharmacy reviewed med rec done by nursing. No Known Home Meds confirmed, claims matches.
[2025-08-15 13:42] VITALS: BMI 25.1
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
[2025-08-15 20:00] VITALS: BP 132/85; PULSE 92; TEMP 36.4; O2SAT 97
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
--- NOTE | 2025-08-16 07:04 | HO.PSYCHPN ---
Subjective Subjective Date of Service: 08/16/25 Reason For Visit: Recurrent Major Depression with Psychotic features Interim History: met with patient. Discussed with Nursing. Slept well. Isolative. May have internal stimuli. With handbook writer reports feeling safer in the hospital and feeling very supported. Hopeful that anxiety and depression will continue to improve. No medication concerns. Adamantly denies psychosis. Less frequent and intense SI-no plans or intent. Hopeful that after the weekend they can work with her primary team and get supports and resources as part of disposition plan Review of Systems Review of Systems unremarkable Mental Status Exam Mental Status Exam Narrative: isolative in room. Self-care okay. Fairly presented. Organized. Does appear anxious. Endorses depression but reports that is less compared to admission. Intermittent suicidal thoughts but no plan or intent. Denies psychosis. Insight and judgment fair Diagnostics Vital Signs (24Hr): Vital Signs - 24 hr 08/15/25 13:00 08/15/25 20:00 Temperature 98.6 F 97.6 F Pulse Rate 78 92 Respiratory Rate 16 Blood Pressure 140/81 H 132/85 Pulse Oximetry 98 97 Oxygen Delivery Method Room Air Room Air BMI result Body Mass Index 25.1 Labs 08/14/25 19:08 08/14/25 19:08 Labs: Laboratory Results - last 48 hr 08/14/25 08/14/25 19:08 19:09 WBC 11.3 H RBC 4.16 L Hgb 13.2 L Hct 38.3 L MCV 92.1 MCH 31.7 MCHC 34.5 RDW 11.9 Plt Count 214 MPV 8.9 L Immature Gran % (Auto) 0.2 Neut % (Auto) 68.6 Lymph % (Auto) 20.0 [place] % (Auto) 9.1 Eos % (Auto) 1.7 Baso % (Auto) 0.4 Lymph # (Auto) 2.3 [place] # (Auto) 1.0 Eos # (Auto) 0.2 Baso # (Auto) 0.1 Abs Immat Gran (auto) 0.02 Absolute Neuts (auto) 7.7 Absolute Nucleated RBC 0.000 Nucleated RBC % (auto) 0.0 Sodium 143 Potassium 3.7 Chloride 108 Carbon Dioxide 24 Anion Gap 15 BUN 13 Creatinine 0.94 Estim Creat Clear Calc 126.1 Estimated GFR > 60 Random Glucose 107 Calcium 8.7 Total Bilirubin 0.2 AST 37 ALT 29 Alkaline Phosphatase 59 Total Protein 6.8 Albumin 4.2 Urine Color Dark Yellow Urine Appearance Clear Urine pH 6.0 Ur Specific [place] 1.025 Urine Protein Trace Urine Glucose (UA) Negative Urine Ketones Trace Urine Blood Small (1+) H Urine Nitrite Negative Ur Leukocyte Esterase Negative Urine RBC 11-20 H Urine WBC 0-5 Ur Squamous Epith Cells 0-2 Urine Bacteria None Seen Hyaline Casts 0-2 Salicylates < 5.0 L Urine Opiates Screen Not Detected Ur Buprenorphine Scrn Not Detected Ur Oxycodone Screen Not Detected Urine Methadone Screen Not Detected Urine Fentanyl Screen Not Detected Acetaminophen < 3 Ur Barbiturates Screen Not Detected Ur Phencyclidine Scrn Not Detected Ur Amphetamines Screen Not Detected U Benzodiazepines Scrn Not Detected Urine Cocaine Screen Not Detected U Marijuana (THC) Screen POSITIVE H Ethyl Alcohol 130 COVID-19 ([facility]) Negative COVID-19 Clin Com See Note Medications Medications Current Medications Acetaminophen (Acetaminophen 325 Mg Tablet) 650 mg PO Q6H PRN PRN Reason: Headache/Pain, Scale 1-10 Al Hydroxide/Mg Hydroxide (Magnesium Hydrox/Alum Hydrox 30 Ml Oral.Susp) 30 ml PO Q6H PRN PRN Reason: Heartburn/Nausea Hydroxyzine HCl (Hydroxyzine Hcl 50 Mg Tablet) 50 mg PO Q6H PRN PRN Reason: mild anxiety Magnesium Hydroxide (Milk Of Magnesia 30 Ml Oral.Susp) 30 ml PO DAILY PRN PRN Reason: Constipation Nicotine Polacrilex (Nicotine Polacrilex 2 Mg Gum) 4 mg BUCCAL Q2H PRN PRN Reason: Nicotine Cravings Olanzapine (Olanzapine 5 Mg Tablet) 5 mg PO Q4H PRN PRN Reason: agitation,psychosis Trazodone HCl (Trazodone Hcl 50 Mg Tablet) 50 mg PO BEDTIME MRX1 PRN PRN Reason: Insomnia Allergies Allergies Allergy/AdvReac Type Severity Reaction Status Date / Time No Known Allergies Allergy Verified 08/14/25 18:25 Assessment & Plan Assessment & Plan (1) Schizoaffective disorder: Status: Acute Code(s): F25.9 - Schizoaffective disorder, unspecified (2) PTSD (post-traumatic stress disorder): Status: Acute Code(s): F43.10 - Post-traumatic stress disorder, unspecified (3) Suicidal ideation: Status: Acute Code(s): R45.851 - Suicidal ideations (4) History of hormone therapy: Status: Acute Code(s): Z92.29 - Personal history of other drug therapy Plan HPI: Pt is a 30 year old transgender female (MTF - she,her) with hx of PTSD, ?schizoaffective who self presented to [facility] secondary to reporting increased depression, helplessness and suicidal ideations secondary to being off medications, homeless and alcohol use. Pt reported since being discharged from [facility] (April 2025) have been struggling and experiencing worsening suicidal ideations. Formulation/clinical reasoning: increasing in SI, depression, anxiety, being homeless, increasing in alcohol use, has no OP providers, limited support in community. Currently not on meds and took herself off meds a couple of months. Given history of schizoaffective, PTSD. Patient would benefit from restrictive environment for own safety, restart, medication, and refer patient back to outpatient psychiatric services. Can be a good candidate for long-term substance use treatment programs. Hospital course: 08/15/25: Patient is not interested in taking medication but will open in the future to discuss about. Review with patient regarding PRNs available included hydroxyzine, trazodone and olanzapine. 08/16: still prefers no scheduled medications. Hopeful that after the weekend they can work with her primary team and get supports and resources as part of disposition plan Plan Patient on 15 minute checks for safety. Admitted to M5. CV. Work with treatment team to do collateral for CSS/CCS if possible for aftercare. Want respite Utox +THC. BAL 130. Slightly elevated WBC. U/A unremarkable. Reason for continued inpatient stay Substantial Risk for: harm to self and rapid decompensation Time Spent With Patient Time: Total time managing care of this patient today ____ minutes.
[2025-08-16 08:00] VITALS: BP 123/68; PULSE 92; RESP 16; TEMP 36.8; O2SAT 97
[2025-08-16 09:36] LABS: Cholesterol 215 mg/dL (<200); HDL Cholesterol 95 mg/dL (>40); Magnesium 2.3 mg/dL (1.6-2.6); Triglycerides 70 mg/dL (<150)
[2025-08-16 09:50] LABS: Free T4 (Free Thyroxine) 0.82 ng/dL (0.71-1.85); Thyroid Stimulating Hormone 0.65 uIU/mL (0.32-4.0)
[2025-08-16 10:04] LABS: Folate 8.8 ng/mL (> or = 4.0); Hemoglobin A1C 87.9406 umol/L; Total Hemoglobin (HGBA1C) 2575.1602 umol/L; Vitamin B12 789 pg/mL (200-900)
[2025-08-17 08:00] VITALS: BP 118/68; PULSE 74; RESP 18; TEMP 36.8; O2SAT 98
--- NOTE | 2025-08-17 08:00 | HO.PSYCHPN ---
Subjective Subjective Date of Service: 08/17/25 Reason For Visit: Recurrent Major Depression with Psychotic features Interim History: met with patient. Discussed with Nursing. Slept well. Isolative. Denies paranoia or hallucinations. Feeling safe in the hospital and feeling very supported. Hopeful that anxiety and depression will continue to improve.Less frequent and intense SI-no plans or intent. No medication concerns- prefers prn and not scheduled. Medication Compliance: Yes Side effects from medications: No Attending Groups: No Review of Systems Acute medical concerns: No Review of Systems Review of Systems unremarkable Mental Status Exam Mental Status Exam Narrative: isolative in room. Self-care okay. Fairly presented. Organized. Does appear anxious. Endorses depression but reports that is less compared to admission. Intermittent suicidal thoughts but no plan or intent. Denies psychosis. Insight and judgment fair Diagnostics Vital Signs (24Hr): BMI result Body Mass Index 25.1 Labs 08/14/25 19:08 08/14/25 19:08 Labs: Laboratory Results - last 48 hr 08/16/25 08:42 Estimat Average Glucose 105 Hemoglobin A1c % 5.3 Magnesium 2.3 Triglycerides 70 Cholesterol 215 H LDL Cholesterol, Calc 106 H HDL Cholesterol 95 Vitamin B12 789 Folate 8.8 TSH 0.65 Free T4 0.82 Medications Medications Current Medications Acetaminophen (Acetaminophen 325 Mg Tablet) 650 mg PO Q6H PRN PRN Reason: Headache/Pain, Scale 1-10 Al Hydroxide/Mg Hydroxide (Magnesium Hydrox/Alum Hydrox 30 Ml Oral.Susp) 30 ml PO Q6H PRN PRN Reason: Heartburn/Nausea Hydroxyzine HCl (Hydroxyzine Hcl 50 Mg Tablet) 50 mg PO Q6H PRN PRN Reason: mild anxiety Last Admin: 08/16/25 20:47 Dose: 50 mg Magnesium Hydroxide (Milk Of Magnesia 30 Ml Oral.Susp) 30 ml PO DAILY PRN PRN Reason: Constipation Nicotine Polacrilex (Nicotine Polacrilex 2 Mg Gum) 4 mg BUCCAL Q2H PRN PRN Reason: Nicotine Cravings Last Admin: 08/16/25 20:47 Dose: 4 mg Olanzapine (Olanzapine 5 Mg Tablet) 5 mg PO Q4H PRN PRN Reason: agitation,psychosis Trazodone HCl (Trazodone Hcl 50 Mg Tablet) 50 mg PO BEDTIME MRX1 PRN PRN Reason: Insomnia Allergies Allergies Allergy/AdvReac Type Severity Reaction Status Date / Time No Known Allergies Allergy Verified 08/14/25 18:25 Assessment & Plan Assessment & Plan (1) Schizoaffective disorder: Status: Acute Code(s): F25.9 - Schizoaffective disorder, unspecified (2) PTSD (post-traumatic stress disorder): Status: Acute Code(s): F43.10 - Post-traumatic stress disorder, unspecified (3) Suicidal ideation: Status: Acute Code(s): R45.851 - Suicidal ideations (4) History of hormone therapy: Status: Acute Code(s): Z92.29 - Personal history of other drug therapy Plan HPI: Pt is a 30 year old transgender female (MTF - she,her) with hx of PTSD, ?schizoaffective who self presented to [facility] secondary to reporting increased depression, helplessness and suicidal ideations secondary to being off medications, homeless and alcohol use. Pt reported since being discharged from [facility] (April 2025) have been struggling and experiencing worsening suicidal ideations. Formulation/clinical reasoning: increasing in SI, depression, anxiety, being homeless, increasing in alcohol use, has no OP providers, limited support in community. Currently not on meds and took herself off meds a couple of months. Given history of schizoaffective, PTSD. Patient would benefit from restrictive environment for own safety, restart, medication, and refer patient back to outpatient psychiatric services. Can be a good candidate for long-term substance use treatment programs. Hospital course: 08/15/25: Patient is not interested in taking medication but will open in the future to discuss about. Review with patient regarding PRNs available included hydroxyzine, trazodone and olanzapine. 08/16: still prefers no scheduled medications. Hopeful that after the weekend they can work with her primary team and get supports and resources as part of disposition plan 08/17-no changes Plan Patient on 15 minute checks for safety. Admitted to . CV. Work with treatment team to do collateral for CSS/CCS if possible for aftercare. Want respite Utox +THC. BAL 130. Slightly elevated WBC. U/A unremarkable. Reason for continued inpatient stay Substantial Risk for: inability to function and rapid decompensation Time Spent With Patient Time: Total time managing care of this patient today ____ minutes.
[2025-08-17 20:34] VITALS: BP 153/81; PULSE 95; RESP 16; TEMP 36.6; O2SAT 98
[2025-08-18 08:00] VITALS: BP 119/67; PULSE 66; RESP 15; TEMP 37.1; O2SAT 98
--- NOTE | 2025-08-18 08:39 | HO.PM.IMCN ---
History of Present Illness Data of Consult Service Date: 08/18/25 Primary Care Provider: Unknown Physician HPI Reason for consult: Medical H&P 30-year-old transgender male to female patient with past medical history of PTSD, ETOH use, psychogenic nonepileptic seizure disorder, schizoaffective affective disorder presented to the ED with suicidal ideation. Initial workup revealed no leukocytosis, mild anemia. No electrolyte imbalances, no evidence of renal or liver dysfunction. Tox screen positive for marijuana, otherwise negative. Urine without evidence of infection. On exam patient has no medical concerns. Review of Systems Review of Systems: Denies any shortness of breath, chest pain, headaches, dysuria, abdominal pain or discomfort, nausea, vomiting or diarrhea. Denies fever or chills. [facility] Medical History (Updated 08/18/25 @ 14:19 by Lizzie Watts DNP) Psychogenic nonepileptic seizure Dissociation PTSD (post-traumatic stress disorder) Schizoaffective disorder History of hormone therapy Schizophrenia Social History Household Members: None Housing: Homeless Do you presently have visiting nurse or other home services: No Unable to assess alcohol history related to: Unable to respond Patient Tobacco Use Status: Current someday Tobacco user Tobacco use type: Cigarette Cigarette Packs Per Day: 0 Cigarettes Per Day: 2 Smoked in Last 30 Days: Yes e-Cigarette/Vaping Use: Never Used Patient Interested in Nicotine Replacement: No Patient Given Instructions on How to Stop Smoking: No (Pt declined) Second Hand Smoke Exposure: No Substance Use Type: Marijuana Currently Displaying Signs/Symptoms of Drug Intoxication Withdrawal: No Have you been hit, kicked, punched, or otherwise hurt by someone within the past year? If so, by whom?: No Do you feel safe in your current relationship?: No Current Relationship Is there a partner from a previous relationship who is making you feel unsafe now?: No Are you made to feel afraid or neglected: No Spiritual Healthcare Practices: Denies Yazidism Healthcare Practices: Denies Cultural Healthcare Practices: Denies Advance Directives: No Advance Directives Information Provided: No Do you have thoughts of harming others: None Do you have a plan to hurt others: No Plan Recently lost weight without trying: No Eating poorly because of decreased appetite: No Nutrition Risks: No Nutritional Risk Poor oral hygiene: No service: No Sexual orientation: Transgender female Meds Allergies Allergy/AdvReac Type Severity Reaction Status Date / Time No Known Allergies Allergy Verified 08/14/25 18:25 Active Medications: Current Medications Acetaminophen (Acetaminophen 325 Mg Tablet) 650 mg PO Q6H PRN PRN Reason: Headache/Pain, Scale 1-10 Al Hydroxide/Mg Hydroxide (Magnesium Hydrox/Alum Hydrox 30 Ml Oral.Susp) 30 ml PO Q6H PRN PRN Reason: Heartburn/Nausea Hydroxyzine HCl (Hydroxyzine Hcl 50 Mg Tablet) 50 mg PO Q6H PRN PRN Reason: mild anxiety Last Admin: 08/17/25 21:21 Dose: 50 mg Magnesium Hydroxide (Milk Of Magnesia 30 Ml Oral.Susp) 30 ml PO DAILY PRN PRN Reason: Constipation Nicotine Polacrilex (Nicotine Polacrilex 2 Mg Gum) 4 mg BUCCAL Q2H PRN PRN Reason: Nicotine Cravings Last Admin: 08/17/25 21:21 Dose: 4 mg Olanzapine (Olanzapine 5 Mg Tablet) 5 mg PO Q4H PRN PRN Reason: agitation,psychosis Trazodone HCl (Trazodone Hcl 50 Mg Tablet) 50 mg PO BEDTIME MRX1 PRN PRN Reason: Insomnia Home Medications ?Medication ?Instructions ?Recorded ?Confirmed ?Last Taken ?Type No Known Home Meds 08/14/25 08/14/25 Unknown History Physical Exam Vital Signs and Narrative: Vital Signs: Last Vital Signs Temp 97.9 F 08/17/25 20:34 Pulse 95 08/17/25 20:34 Resp 16 08/17/25 20:34 BP 153/81 H 08/17/25 20:34 Pulse Ox 98 08/17/25 20:34 O2 Del Method Room Air 08/17/25 20:34 BMI result Body Mass Index 25.1 Alert and oriented X3, calm and cooperative. Answers questions. Neuro: CN II-X11 intact, no deficits, visual acuity intact EYES: PERRLA, EOM intact ENT: Hearing intact, MMM Cardiac: S1 S2 RRR, No ectopy Pulmonary: lungs clear to auscultation, No increased WOB. Abdominal: BS active in all 4 quadrants, no guarding or tenderness MSK: Strength 5/5 upper and lower extremities : Deferred Extremities: No edema in lower extremities Psych: Mood stable, Quiet and cooperative. Skin: Warm and dry, Intact Results Labs 08/14/25 19:08 08/14/25 19:08 Assessment and Plan (1) Psychogenic nonepileptic seizure: Status: Acute Plan 30-year-old patient with past medical history listed below presented to the emergency room with suicidal ideation. Now admitted to inpatient psych for further care and treatment. PTSD/ETOH use/Schizoaffective affective disorder Treatment per psychiatric team Psychogenic nonepileptic seizure disorder No recent seizures Thank you for allowing me to participate in the care of this patient. Will follow with you, please notify medical provider with any changes in condition or concerns.
--- NOTE | 2025-08-18 09:51 | HO.PSYCHPN ---
Subjective Subjective Date of Service: 08/18/25 Reason For Visit: Recurrent Major Depression with Psychotic features Subjective Notes: Conditional Voluntary Healthcare Proxy: No Guardianship: No Medical Problems Affecting Mental Status: No Interim History: Vadim is requesting discharge on 08/19. She reports she took great effort to come off medications and has no interest in re-starting. She believes that a focus on nutrition and exercise, along with positive health habits will be the best plan for her. She plans to follow up with psychotherapy. She denies SI,HI. There are voices at times-non command or negative in origin. Denies VH. She reports a calm, restful, isolative(due to milieu activity)_ weekend and is wanting to move forward. Medication Compliance: No Side effects from medications: No Attending Groups: No Review of Systems Acute medical concerns: No Medical Review of Systems: unchanged Review of Systems Review of Systems Denies Mental Status Exam Mental Status Exam Patient Appearance: Appropriate Patient Orientation: Person, Place, Time and Situation Level of Consciousness: Alert Patient Behavior: Talkative and Good Eye Contact Mood Description: Calm Affect Description: Calm Patient Cognition Impaired: No Ability to Follow Directions: Good Speech Pattern: Spontaneous Speech Memory Description: Intact Hallucinations: None (not at this time) Delusions: Not Present Thought Process: Intact Thought Content: positive for Intact Judgement: Good Diagnostics Vital Signs (24Hr): Vital Signs - 24 hr 08/17/25 20:34 Temperature 97.9 F Pulse Rate 95 Respiratory Rate 16 Blood Pressure 153/81 H Pulse Oximetry 98 Oxygen Delivery Method Room Air BMI result Body Mass Index 25.1 Labs 08/14/25 19:08 08/14/25 19:08 Labs: Laboratory Results - last 48 hr 08/16/25 08:42 Estimat Average Glucose 105 Hemoglobin A1c % 5.3 Vitamin B12 789 Folate 8.8 Medications Medications Current Medications Acetaminophen (Acetaminophen 325 Mg Tablet) 650 mg PO Q6H PRN PRN Reason: Headache/Pain, Scale 1-10 Al Hydroxide/Mg Hydroxide (Magnesium Hydrox/Alum Hydrox 30 Ml Oral.Susp) 30 ml PO Q6H PRN PRN Reason: Heartburn/Nausea Hydroxyzine HCl (Hydroxyzine Hcl 50 Mg Tablet) 50 mg PO Q6H PRN PRN Reason: mild anxiety Last Admin: 08/17/25 21:21 Dose: 50 mg Magnesium Hydroxide (Milk Of Magnesia 30 Ml Oral.Susp) 30 ml PO DAILY PRN PRN Reason: Constipation Nicotine Polacrilex (Nicotine Polacrilex 2 Mg Gum) 4 mg BUCCAL Q2H PRN PRN Reason: Nicotine Cravings Last Admin: 08/17/25 21:21 Dose: 4 mg Olanzapine (Olanzapine 5 Mg Tablet) 5 mg PO Q4H PRN PRN Reason: agitation,psychosis Trazodone HCl (Trazodone Hcl 50 Mg Tablet) 50 mg PO BEDTIME MRX1 PRN PRN Reason: Insomnia Allergies Allergies Allergy/AdvReac Type Severity Reaction Status Date / Time No Known Allergies Allergy Verified 08/14/25 18:25 Assessment & Plan Assessment & Plan (1) Schizoaffective disorder: Status: Acute Code(s): F25.9 - Schizoaffective disorder, unspecified (2) PTSD (post-traumatic stress disorder): Status: Acute Code(s): F43.10 - Post-traumatic stress disorder, unspecified (3) Suicidal ideation: Status: Acute Code(s): R45.851 - Suicidal ideations (4) History of hormone therapy: Status: Acute Code(s): Z92.29 - Personal history of other drug therapy Plan HPI: Pt is a 30 year old transgender female (MTF - she,her) with hx of PTSD, ?schizoaffective who self presented to [facility] ER secondary to reporting increased depression, helplessness and suicidal ideations secondary to being off medications, homeless and alcohol use. Pt reported since being discharged from [facility] (April 2025) have been struggling and experiencing worsening suicidal ideations. Formulation/clinical reasoning: increasing in SI, depression, anxiety, being homeless, increasing in alcohol use, has no OP providers, limited support in community. Currently not on meds and took herself off meds a couple of months. Given history of schizoaffective, PTSD. Patient would benefit from restrictive environment for own safety, restart, medication, and refer patient back to outpatient psychiatric services. Can be a good candidate for long-term substance use treatment programs. Hospital course: 08/15/25: Patient is not interested in taking medication but will open in the future to discuss about. Review with patient regarding PRNs available included hydroxyzine, trazodone and olanzapine. 08/16: still prefers no scheduled medications. Hopeful that after the weekend they can work with her primary team and get supports and resources as part of disposition plan 08/17-no changes 08/18-DC 08/19. Pt is not wanting services at this time. She accepted resources and tells team she will follow up independently. Plan Patient on 15 minute checks for safety. Admitted to [facility]. CV. Work with treatment team to do collateral for CSS/CCS if possible for aftercare. Want respite Utox +THC. BAL 130. Slightly elevated WBC. U/A unremarkable. Reason for continued inpatient stay Substantial Risk for: stable for discharge Time Spent With Patient Time: Total time managing care of this patient today ____ minutes.
[2025-08-18 20:00] VITALS: BP 138/81; PULSE 86; TEMP 37.2; O2SAT 96
[2025-08-19 08:00] VITALS: BP 133/63; PULSE 89; RESP 16; TEMP 36.7; O2SAT 98
--- NOTE | 2025-08-19 09:48 | PM.PSYDC ---
DS: Providers Provider Date of admission: 08/15/25 10:55 Primary care physician: Unknown Physician DS: Diagnosis Discharge Diagnosis (1) Psychogenic nonepileptic seizure: Status: Acute DS: Medications Discharge Medications Home Medications: Home Medications ?Medication ?Instructions ?Recorded ?Confirmed No Known Home Meds 08/14/25 08/14/25 Data Data Completed and Pending Completed studies during hospitalization [Text1]: 08/14/25 08/14/25 08/16/25 19:08 19:09 08:42 WBC 11.3 H RBC 4.16 L Hgb 13.2 L Hct 38.3 L MCV 92.1 MCH 31.7 MCHC 34.5 RDW 11.9 Plt Count 214 MPV 8.9 L Immature Gran % (Auto) 0.2 Neut % (Auto) 68.6 Lymph % (Auto) 20.0 [place] % (Auto) 9.1 Eos % (Auto) 1.7 Baso % (Auto) 0.4 Lymph # (Auto) 2.3 [place] # (Auto) 1.0 Eos # (Auto) 0.2 Baso # (Auto) 0.1 Abs Immat Gran (auto) 0.02 Absolute Neuts (auto) 7.7 Absolute Nucleated RBC 0.000 Nucleated RBC % (auto) 0.0 Sodium 143 Potassium 3.7 Chloride 108 Carbon Dioxide 24 Anion Gap 15 BUN 13 Creatinine 0.94 Estim Creat Clear Calc 126.1 Estimated GFR > 60 Random Glucose 107 Estimat Average Glucose 105 Hemoglobin A1c % 5.3 Calcium 8.7 Magnesium 2.3 Total Bilirubin 0.2 AST 37 ALT 29 Alkaline Phosphatase 59 Total Protein 6.8 Albumin 4.2 Triglycerides 70 Cholesterol 215 H LDL Cholesterol, Calc 106 H HDL Cholesterol 95 Vitamin B12 789 Folate 8.8 TSH 0.65 Free T4 0.82 Urine Color Dark Yellow Urine Appearance Clear Urine pH 6.0 Ur Specific Fults 1.025 Urine Protein Trace Urine Glucose (UA) Negative Urine Ketones Trace Urine Blood Small (1+) H Urine Nitrite Negative Ur Leukocyte Esterase Negative Urine RBC 11-20 H Urine WBC 0-5 Ur Squamous Epith Cells 0-2 Urine Bacteria None Seen Hyaline Casts 0-2 Salicylates < 5.0 L Urine Opiates Screen Not Detected Ur Buprenorphine Scrn Not Detected Ur Oxycodone Screen Not Detected Urine Methadone Screen Not Detected Urine Fentanyl Screen Not Detected Acetaminophen < 3 Ur Barbiturates Screen Not Detected Ur Phencyclidine Scrn Not Detected Ur Amphetamines Screen Not Detected U Benzodiazepines Scrn Not Detected Urine Cocaine Screen Not Detected U Marijuana (THC) Screen POSITIVE H Ethyl Alcohol 130 COVID-19 ([facility]) Negative COVID-19 Clin Com See Note DS: Summary Time Spent with Patient Time attestation: Total time managing care of this patient today ____ minutes. Discharge Plan Discharge Anticipated Discharge Date/Time: 08/19/25 11:00 Patient Disposition: [facility] Discharge Diagnosis: PTSD Schizoaffective Disorder Referrals: Outpatient Mental Health: Clinical & Support Options [Other] - 1 Week Referral Note: Walk-in Monday and Monday 8am-5pm or Monday, Monday, 8am-6pm. To complete an intake for outpatient mental health services. Bring your hospital discharge paperwork to the clinic when you present for evaluation. Intake will be about an hour. Discharge Medications: No Action No Known Home Meds Discharge Orders: Discharge Order (Routine); Ordered 08/19/25 Ordered By: Carlene Byers Diet: Advance to usual diet Activity on Discharge: As tolerated Stand Alone Forms: Patient Portal Discharge page Print Language: Amharic Care Plan Goals: Mood and Behavioral Stabilization Health Concerns: Mood and Behavioral Stabilization Plan of Treatment: Vadim declines medications She plans to focus on nutrition to manage symptoms She requests discharge from the hospital to continue her plan of care Assessment: Denies SI,HI,AH, VH No sx of acute karina or psychosis Denies interventions and will make her own choices in the community
== END 2025-08-19 11:11 | disposition home or self-care (01) | DRG 750 ==
LOC: HO.ED 19:08 → HO.PM5 08-15 11:06
PROVIDERS: Physician Assistant Medical; Admitting Provider Clinical Nurse Specialist Psychiatric/Mental Health, Adult; Emergency Provider Emergency Medicine; Visit Provider Clinical Nurse Specialist Psychiatric/Mental Health, Adult
DX: F25.9 Schizoaffective disorder, unspecified (principal); R45.851 Suicidal ideations; F17.210 Nicotine dependence, cigarettes, uncomplicated; Z71.6 Tobacco abuse counseling; F64.0 Transsexualism; Y90.6 Blood alcohol level of 120-199 mg/100 ml; Z59.02 Unsheltered homelessness; F10.90 Alcohol use, unspecified, uncomplicated; F43.10 Post-traumatic stress disorder, unspecified; Z20.822 Contact with and (suspected) exposure to COVID-19; Z79.899 Other long term (current) drug therapy
CPT/HCPCS: 36415; 80053; 80061; 80143; 80179; 80307; 81001; 82607; 82746; 83036; 83735; 84439; 84443; 85025; 87635; 99285; S9485

== ENCOUNTER → 2025-08-15 10:55 | Outpatient (BNV) | payer MEDICAID, SELFPAY | PROVIDERS: Admitting Provider Clinical Nurse Specialist Psychiatric/Mental Health, Adult; Emergency Provider Emergency Medicine; Visit Provider Nurse Practitioner Family | DX: F44.5 Conversion disorder with seizures or convulsions (principal) | CPT/HCPCS: 99221 ==

== ENCOUNTER → 2025-08-15 10:55 | Outpatient (BNV) | payer OTHER, SELFPAY | PROVIDERS: Admitting Provider Clinical Nurse Specialist Psychiatric/Mental Health, Adult; Emergency Provider Emergency Medicine; Visit Provider Psychiatry & Neurology Psychiatry | DX: F25.9 Schizoaffective disorder, unspecified (principal); F43.10 Post-traumatic stress disorder, unspecified; R45.851 Suicidal ideations; Z92.29 Personal history of other drug therapy | CPT/HCPCS: 99232 ==